=== PATIENT | female | born 1980 | race Caucasian/White ===

== ENCOUNTER 2023-03-15 20:46 | Emergency (ER) | payer BC, SELFPAY ==
[2023-03-15 20:58] VITALS: BP 147/90; PULSE 71; RESP 18; TEMP 36.2; O2SAT 100; BMI 27.5
--- NOTE | 2023-03-15 21:25 | ED_ITS ---
HPI - General Adult General Time Seen by Provider: 21:25 Date Seen: 03/15/23 Chief complaint: Sore Throat Stated complaint: cough, sore throat, headache Time Seen by Provider: 03/15/23 21:11 Source: patient, RN notes reviewed and old records reviewed Mode of arrival: ambulatory Limitations: no limitations History of Present Illness HPI narrative: Satish is a very pleasant 42-year-old female with history of recent viral illness who comes to the emergency room with a new sore throat. Patient states that she has been ill for approximately 3 weeks with the onset of a cold and cough 3 weeks ago. She was seen after a week of symptoms and was given Tessalon Perles. Additional week noted no improvement and continued cough as well as significant sinus pressure and she was started on Augmentin for sinusitis. Today she had the onset of a sore throat which is entirely new for her. Her cough is not worse but is still present. She has a son with a new illness as well. He has tested negative for COVID. She did not receive flu shot this year. No vomiting but she has had loose stools thought to be attributed to the Augmentin. She is not having shortness of breath. No chest pain. Related Data Home Medications Medication Instructions Recorded Confirmed spironolactone 100 mg tablet 100 mg PO QDAY 02/28/23 02/28/23 Previous Rx's Medication Instructions Recorded albuterol sulfate 90 mcg/actuation 2 puff inhalation Q4-6H PRN 02/28/23 aerosol inhaler shortness of breath or wheezing #8.5 grams benzonatate 200 mg capsule 200 mg PO BID-TID PRN cough #20 02/28/23 caps Allergies Allergy/AdvReac Type Severity Reaction Status Date / Time Sulfa (Sulfonamide Allergy Severe Hives Verified 02/28/23 15:17 Antibiotics) Review of Systems Status of ROS: Reports: 10 or more systems reviewed and unremarkable except as noted in History and below Exam Narrative: Exam Narrative: Patient is alert and oriented. She does appear to be uncomfortable when she is coughing. Eyes are clear. Oral cavity shows moist mucous membranes. Posterior oropharynx does not have significant erythema. No trismus but. She has positive left anterior cervical lymphadenopathy. Heart with a regular rate and rhythm and lungs are clear bilaterally. Moving all extremities. Const: Vital Signs, click to edit/add: Vital Signs - 24 hr 03/15/23 20:58 Temperature 97.1 F L Pulse Rate [Pulse Oximeter] 71 Respiratory Rate 18 Blood Pressure [Ri ght Upper Arm] 147/90 H Pulse Oximetry 100 Oxygen Delivery Me thod Room Air Documenting provider has reviewed patient's vital signs: yes Course Course ED Course: At this time differential diagnosis includes pneumonia, strep pharyngitis, influenza, COVID. Patient has no evidence of trismus airway compromise or asymmetrical anatomy at this time. Strep test as well as COVID/influenza/RSV has been ordered. Reevaluation(s) Reevaluation #1: Patient has tested positive for influenza B. X-ray is reassuring. Vital Signs Vital signs: Initial Vital Signs Temperature 97.1 F L 03/15/23 20:58 Temperature Source Temporal Artery Scan 03/15/23 20:58 Pulse Rate 71 03/15/23 20:58 Pulse Rhythm Regular 03/15/23 20:58 Respiratory Rate 18 03/15/23 20:58 Blood Pressure 147/90 H 03/15/23 20:58 Blood Pressure Mean 109 H 03/15/23 20:58 Blood Pressure Position Sitting 03/15/23 20:58 Pulse Oximetry 100 03/15/23 20:58 Oxygen Delivery Method Room Air 03/15/23 20:58 Vital Signs Temperature 97.1 F L 03/15/23 20:58 Pulse Rate 71 03/15/23 20:58 Respiratory Rate 18 03/15/23 20:58 Blood Pressure 147/90 H 03/15/23 20:58 Pulse Oximetry 100 03/15/23 20:58 Oxygen Delivery Method Room Air 03/15/23 20:58 Temperature 97.1 F L 03/15/23 20:58 Pulse Rate 71 03/15/23 20:58 Respiratory Rate 18 03/15/23 20:58 Blood Pressure 147/90 H 03/15/23 20:58 Pulse Oximetry 100 03/15/23 20:58 Oxygen Delivery Method Room Air 03/15/23 20:58 Medical Decision Making MDM Narrative Medical decision making narrative: 1. Influenza B-I believe this to be a new diagnosis with onset of sore throat today. This is on top of her post viral cough and sinusitis from an earlier on identified illness. Given the circumstances in that she is dealing with post viral cough I do offer Tamiflu via our [employer] machine. Normally I do explain that influenza B is mild but I would suggest that she start on this antiviral. Suggest ibuprofen Tylenol as needed for discomfort suggest rest and fluids. Seek medical attention for worsening symptoms 2. Sinusitis-continue Augmentin. 3. Disposition-home at this time. Rest push fluids. I would not be surprised if she starts developing a fever over the next 48 hours. Return for vomiting, dehydration, breathing difficulties and as needed. Medical Records Medical records reviewed: Yes I reviewed the patient's medical records Lab Data Lab results reviewed: Yes I reviewed the patient's lab results Labs: Lab Results 03/15/23 Range/Units 20:50 SARS-CoV-2 (PCR) Negative SARS-CoV-2 (Negative) Influenza Type A (PCR) Negative PCR FLU A (Negative) Influenza Type B (PCR) POSITIVE PCR FLU B A (Negative) RSV (PCR) Negative PCR RSV (Negative) Group A Strep DNA NOT DETECTED (Not Detectd) Imaging Data Chest x-ray: Attestation: I have reviewed the pertinent imaging results. My impression: I do not note any infiltrates Radiologist's impression: Cardiovascular and mediastinum: Heart size and vasculature are normal in caliber and appearance. Lungs and pleural spaces: Lungs are clear. No sign of infiltrate or mass. No sign of pleural effusion. No pneumothorax. Bones and soft tissues: No significant findings. IMPRESSION: Unremarkable chest. Discharge Plan Discharge Clinical Impression: Post-viral cough syndrome, Influenza B Sinusitis Qualifiers: Sinusitis location: other Chronicity: unspecified Qualified Code(s): J32.9 - Chronic sinusitis, unspecified Patient Disposition: Home, Self-Care Condition: Unchanged Additional Instructions: You have tested positive for influenza B. this is usually the milder form of in fluenza but because you are already suffering from another virus, I would suggest we go ahead and treat with the antiviral medication called Tamiflu. You are likely to have a fever from the influenza over the next day or so. You may continue your Augmentin for the treatment is sinusitis. Seek medical attention or return for worsening symptoms Activity Level: No Restrictions Discharge Diet: Regular Prescriptions: No Action spironolactone 100 mg tablet 100 mg PO QDAY albuterol sulfate 90 mcg/actuation HFA aerosol inhaler 2 puff inhalation Q4-6H PRN (Reason: shortness of breath or wheezing) Qty: 8.5 0RF benzonatate 200 mg capsule 200 mg PO BID-TID PRN (Reason: cough) Qty: 20 0RF Follow Up/Referrals: Katerina Hankins CNP, AIRCRAFT PNEUDRAULICS REPAIRER [Primary Care Provider] - Stand Alone Forms: MyHealth Info Instructions
--- NOTE | 2023-03-15 21:35 | CRLHL7_ITS ---
For Patients: As a result of the Century Cures Act, medical imaging exams and procedure reports are released immediately into your electronic medical record. You may view this report before your referring provider. If you have questions, please contact your health care provider. INDICATION: Cough. TECHNIQUE: Chest 1 view. COMPARISON: None. FINDINGS: Cardiovascular and mediastinum: Heart size and vasculature are normal in caliber and appearance. Lungs and pleural spaces: Lungs are clear. No sign of infiltrate or mass. No sign of pleural effusion. No pneumothorax. Bones and soft tissues: No significant findings. IMPRESSION: Unremarkable chest. Dictated by Devyn Bach MD @ 03/15/2023 10:02:54 PM (Electronically Signed)
--- OUTSIDE RECORDS SUMMARY | 2023-03-15 21:35 | XMS_ITS | Clinical Summary ---
Author Name Unknown Organization [email or web address] [place], [place] [address] Care Team Providers Care Spiral Machine Operator Name Role Phone Katerina Hankins NP Primary Care Provider [phone] Allergies Active Allergy Reactions Criticality Noted Date Comments Fentanyl Hypotension 10/23/2020 Sulfa (Sulfonamide Antibiotics) Hives 09/07 Medications Medication Sig Dispensed Refills Start Date End Date Status Clindamycin Phosphate 1 % swab 0 08/23/2019 Active spironolactone (ALDACTONE) 100 mg tablet Take 1 tablet by mouth once daily. 0 08/23/2019 Active sodium fluoride dental 1.1 % gel sodium fluoride 1.1 % dental paste BRUSH WITH PEA SIZED AMOUNT ON TOOTHBRUSH TWICE DAILY MORNING AND NIGHT 0 Active Opzelura 1.5 % crea 0 07/15/2021 Active esomeprazole (NexIUM) 20 mg capsule Take 1 Capsule (20 mg) by mouth once daily. 0 04/15/2022 Active sucralfate (CARAFATE) 1 gram tablet Take 1 g by mouth. 0 01/13/2022 Active albuterol HFA (PRO-AIR; VENTOLIN; PROVENTIL) 90 mcg/actuation inhaler INHALE 2 PUFFS EVERY 4 TO 6 HOURS NEEDED FOR FOR SHORTNESS OF BREATH OR WHEEZING 0 02/28/2023 Active benzonatate (TESSALON) 200 mg capsule TAKE 1 CAPSULE BY MOUTH 2 TO 3 TIMES A DAY NEEDED FOR COUGH 0 02/28/2023 Active amoxicillin-clav ulanate 875-125 mg tablet (AUGMENTIN)Indic ations:Sinusitis , bacterial,Bronch itis Take 1 Tablet by mouth two times daily with meals for 10 days. 20 Tablet 0 03/10/2023 03/20/2023 Active predniSONE (DELTASONE) 20 mg tabletIndication s:Sinusitis, bacterial,Bronch itis Take 2 Tablets (40 mg) by mouth once daily with a meal for 5 days. 10 Tablet 0 03/10/2023 03/15/2023 Active Lotemax 0.5 % ophthalmic ointment PLACE INTO THE LEFT UPPER EYELID THREE TIMES A DAY FOR 3 DAYS 0 09/30/2021 03/10/2023 Discontinued (*Patient states no longer taking) Multivitamins with Fluoride (MULTI-VITAMIN ORAL) Take 1 Tablet by mouth once daily. 0 03/10/2023 Discontinued (*Patient states no longer taking) amLODIPine (NORVASC) 2.5 mg tabletIndication s:Raynaud's disease without gangrene TAKE 1 TABLET BY MOUTH ONCE DAILY. 30 Tablet 0 09/26/2022 03/10/2023 Discontinued (*Patient states no longer taking) fluconazole (Diflucan) 150 mg tabletIndication s:Antibiotic-ind uced yeast infection Take 1 Tablet (150 mg) by mouth one time for 1 dose. May refill and take a second dose if symptoms persist 72 hours after initial dose 1 Tablet 3 03/10/2023 03/10/2023 Active Problems Problem Noted Date Diagnosed Date Tricompartment osteoarthritis of left knee 11/13 Knee effusion, left 11/14/2019 Acute pain of left knee 11/14/2019 Ovarian cyst 05/09/2014 Cervical cancer 03/12/2013 Elevated blood pressure read ing without diagnosis of hypertension 2008 Clubfoot 11/24/2008 ALLERGY UNSPECIFIED 12/25/2004 CONTRACEPTIVE COUNSELING 03/20/2004 WARTS 08/15/2002 MALAISE AND FATIGUE 02/03/2000 SPRAIN/STRAIN, NECK 10/20/1999 SPRAIN/STRAIN, BACK NOS 10/20/1999 DARA III (cervical intraepithelial neoplasia III) Resolved Problems Problem Noted Date Diagnosed Date Resolved Date SORE THROAT 01/26/2005 12/18/2008 ABDOMINAL PAIN UNSPECIFIED SITE 12/14/2004 12/18/2008 UPPER RESPIRATORY INFECTION - ACUTE 02/12/2004 12/18/2008 CONTRACEPTIVE MANAGEMENT NOS 12/08/1999 12/18/2008 PAIN, ABDOMINAL, RIGHT LOWER QUADRANT 10/29/1999 12/18/2008 STATE - INCIDENTAL 12/16/2004 Encounters Date Type Department Care Team Description 03/15/2023 Nurse Triage [facility] [address] [place] [address] Katerina Hankins, CALIN Sinus Problem 03/10/2023 2:20 PM MAKING DEPARTMENT PREPARER Office Visit [facility] [address] [place] [address] Kiera Humphrey MD Cough (Cough x 3 weeks, sinus congestion, fevers ) 03/10/2023 Travel 12/27/2022 3:30 PM MAKING DEPARTMENT PREPARER Ancillary Procedure [facility] [address] [place] [id number] 12/27/2022 Travel 12/21/2022 10:25 AM MAKING DEPARTMENT PREPARER Office Visit [facility] [address] [place] [address] Katerina Hankins NP Neck Pain/problem (Left side neck x 1 week) 12/21/2022 Travel from Last 3 Months Immunizations Name Administration Dates Next Due DTP 05/12/1988,11/22/1984 Influenza Virus, Unspecified 04/02/2016 Influenza, IIV3 (Age >=3 years) 11/14/2018,01/16,12/17/2002 Influenza, IIV4 12/22/2017 Influenza, IIV4 (=>6mos) MDV 01/12/2017 MMR 09/27/1995 Oral Polio Vaccine 05/12/1988,11/22/1984 Td (Age >=7 Years) 09/27/1995 Tdap 06/18/2016,01/16/2013 Family History Medical History Relation Name Comments Cancer-prostate Father Depression Father Diabetes type II Maternal Grandfather Heart Disease Maternal Grandfather Diabetes Maternal Grandmother Lung cancer Maternal Grandmother Smoker Cancer-pancreatic Maternal Uncle HIV Maternal Uncle Heart Disease Mother Peripheral vascular disease Mother Genetic Other 1 [-] migraines. Genetic Other 2 [-] migraines.~hypertension-grandpa rents~irregular heart beat Genetic Other 3 Homocysteinuria ---mutiple fmaily members on mom's side~[-] migraines.~hypertension-grandpa rents~irregular heart beat No Known Problems Paternal Grandfather Diabetes Paternal Grandmother Mental illness Paternal Grandmother Other Paternal Grandmother glaucom a Relation Name Status Comments Father Alive Maternal Grandfather Maternal Grandmother Maternal Uncle Mother Alive Other 1 Other 2 Other 3 Paternal Grandfather Paternal Grandmother Social History Tobacco Use Types Packs/Day Years Used Date Smoking Tobacco: Former Cigarettes 0.5 10.7 0 02/07/1997 - 10/23/2007 Smokeless Tobacco: Never Tobacco Cessation:Counseling Given: Yes Alcohol Use Standard Drinks/Week Comments Yes 0 (1 standard drink = 0.6 oz pur e alcohol) Occasional use PHQ-2 Answer Date Recorded PHQ-2 TOTAL SCORE 0 04/15/2022 Social Connections Answer Date Recorded Frequency of Communication with Friends and Fami ly Not on file 02/07/2021 Financial Resource Strain Answer Date R ecorded Difficulty of Paying Living Expenses Not on file 02/07/2021 Difficulty of Paying Living Expenses Not on file 02/07/2021 Sex and Gender Information Value Date Recorded Sex Assigned at Not on file Gender Identity Not on file Sexual Orientation Not on file Obstetrics History Para Term AB IAB SAB Ectopic Multiple Livin g Live Births 3 3 3 Date Outcome GA Total Labor Labor/2nd/3rd Weight Sex Delivery Anes PTL Bisi A1 A5 Name Cl in Para Para Para Last Filed Vital Signs Vital Sign Reading Time Taken Comments Blood Pressure 120/60 03/10/2023 2:27 PM MAKING DEPARTMENT PREPARER Pulse 90 03/10/2023 2:27 PM MAKING DEPARTMENT PREPARER Temperature 37.5 ??C (99.5 ??F) 03/10/2023 2:27 PM CS T Respiratory Rate 16 09/10/2021 10:16 AM CDT Oxygen Saturation 98% 03/10/2023 2:27 PM MAKING DEPARTMENT PREPARER Inhaled Oxygen Concentration - - Weight 74.9 kg (165 lb 3.2 oz) 03/10/2023 2:27 P M MAKING DEPARTMENT PREPARER Height 163.9 cm (5' 4.53) 04/27/2022 2:48 PM CD T Body Mass Index 27.89 04/27/2022 2:48 PM CDT Plan of Treatment Health Maintenance Due Date Last Done Comments COVID-19 vaccine series (#1) 12/25/1987 Pneumococcal series for age 6-64 (1 of 2 - PCV) 1988 HIV for age 15-65 1997 Hepatitis C screening for ag e 18-79 2000 Pap test for age 21-65 01/09/2020 9 (Completed outside of [facility]), 07/23/2013, 09/06/2012 (Completed outside of [facility]), Additional history exists Influenza for age 9-49 10/08/2022 9, 12/22/2017, 01/12/2017, Additional history exists Depression screening for age 12+ 04/16/2023 04/15/2022, 11/25/2020, 10/02/2020, Additional history exists BMI (ht and wt on same day) for age 18+ 04/28/2023 04/27/2022, 04/15/2022, 11/24/2021, Additional history exists Tetanus booster 06/18/2026 06/18/2016, 01/07, 09/27/1995 Tdap Completed 06/18/2016, 01/16/2013 Procedures Procedure Name Priority Date/Time Associated Diagnosis Comments US NECK OR HEAD SOFT TISSUE QUAN 12/27/2022 4:34 PM MAKING DEPARTMENT PREPARER Lump in neck CBC WITH AUTO DIFFERENTIAL Routine 12/21/2022 11:22 AM MAKING DEPARTMENT PREPARER Lump in neck TSH WITH REFLEX Routine 12/21/2022 11:22 AM MAKING DEPARTMENT PREPARER Lump in neck COMP METABOLIC PANEL Routine 12/21/2022 11:22 AM MAKING DEPARTMENT PREPARER Lump in neck CBC WITH AUTO DIFFERENTIAL Routine 12/21/2022 11:22 AM MAKING DEPARTMENT PREPARER Lump in neck from Last 3 Months Results * US NECK OR HEAD SOFT TISSUE (12/27/2022 4:34 PM MAKING DEPARTMENT PREPARER) Anatomical Region Laterality Modality NECK Ultrasound 12/27/2022 4:34 PM MAKING DEPARTMENT PREPARER Impressions 12/27/2022 4:40 PM MAKING DEPARTMENT PREPARER 1. ??The area palpable abnormality in the left neck correlates with a morphologically normal, subcentimeter cervical chain lymph node. Narrative 12/27/2022 4:40 PM MAKING DEPARTMENT PREPARER For Patients: As a result of the Cures Act, medical imaging exams and procedure reports are released immediately into your electronic medical record. You may view this report before your referring provider. If you have questions, please contact your health care provider. EXAM: US NECK OR HEAD SOFT TISSUE LOCATION: [facility] DATE: 12/27/2022 INDICATION: Lump In Neck COMPARISON: None. TECHNIQUE: Routine. FINDINGS: The area palpable abnormality in the left neck correlates with a 0.5 x 2.6 x 1.1 cm lymph node which retains a hypoechoic cortex and central fatty hilum. A similarly appearing, morphologically normal lymph node in the upper right neck is also seen measuring 0.5 x 1 x 1.2 cm. No enlarged cervical lymph nodes by size criteria are identified. No solid mass or fluid collection identified. Procedure Note Ger Richter MD - 12/27/2022 For Patients: As a result of the Cures Act, medical imagingexams and procedure reports are released immediately into your electronicmedical record. You may view this report before your referring provider.If you have questions, please contact your health care provider. EXAM: US NECK OR HEAD SOFT TISSUE LOCATION: [facility] DATE: 12/27/2022 INDICATION: Lump In Neck COMPARISON: None. TECHNIQUE: Routine. FINDINGS: The area palpable abnormality in the left neck correlates with a0.5 x 2.6 x 1.1 cm lymph node which retains a hypoechoic cortex andcentral fatty hilum. A similarly appearing, morphologically normal lymphnode in the upper right neck is also seen measuring 0.5 x 1 x 1.2 cm. Noenlarged cervical lymph nodes by size criteria are identified. No solid mass or fluid collection identified. IMPRESSION: 1. The area palpable abnormality in the left neck correlates with amorphologically normal, subcentimeter cervical chain lymph node. Katerina Hankins WAREHOUSE TRAINER US * CBC WITH AUTO DIFFERENTIAL (12/21/2022 11:22 AM MAKING DEPARTMENT PREPARER) WHITE BLOOD COUNT 5.3 4.5 - 11.0 thou/cu mm 12/21/2022 11:25 AM [facility] RED BLOOD COUNT 4.12 4.00 - 5.20 mil/cu mm 12/21/2022 11:25 AM [facility] HEMOGLOBIN 13.0 12.0 - 16.0 g/dL 12/21/2022 11:25 AM [facility] HEMATOCRIT 38.6 33.0 - 51.0 % 12/21/2022 11:25 AM [facility] MCV 94 80 - 100 fL 12/21/2022 11:25 AM [facility] MCH 31.6 26.0 - 34.0 pg 12/21/2022 11:25 AM [facility] MCHC 33.7 32.0 - 36.0 g/dL 12/21/2022 11:25 AM [facility] RDW 12.3 11.5 - 15.5 % 12/21/2022 11:25 AM [facility] PLATELET COUNT 236 140 - 440 thou/cu mm 12/21/2022 11:25 AM [facility] MPV 9.9 6.5 - 11.0 fL 12/21/2022 11:25 AM [facility] % NEUT 51.7 % 12/21/2022 11:25 AM [facility] % LYMPH 35.8 % 12/21/2022 11:25 AM [facility] % MONO 10.4 % 12/21/2022 11:25 AM [facility] % EOS 1.9 % 12/21/2022 11:25 AM [facility] % BASO 0.2 % 12/21/2022 11:25 AM [facility] ABSOLUTE NEUTROPHILS 2.7 1.7 - 7.0 thou/cu mm 12/21/2022 11:25 AM [facility] ABSOLUTE LYMPHOCYTES 1.9 0.9 - 2.9 thou/cu mm 12/21/2022 11:25 AM [facility] ABSOLUTE MONOCYTES 0.6 <0.9 thou/cu mm 12/21/2022 11:25 AM [facility] ABSOLUTE EOSINOPHILS 0.1 <0.5 thou/cu mm 12/21/2022 11:25 AM MAKING DEPARTMENT PREPARER [facility] ABSOLUTE BASOPHILS 0.0 <0.3 thou/cu mm 12/21/2022 11:25 AM MAKING DEPARTMENT PREPARER [facility] Blood BLOOD SPECIMEN / Unknown Butterfly / Unknown 12/21/2022 11:22 AM MAKING DEPARTMENT PREPARER 12/21/2022 11:22 AM MAKING DEPARTMENT PREPARER Katerina Hankins NP HEMATOLOGY [facility] [address] [place] [address], * TSH WITH REFLEX (12/21/2022 11:22 AM MAKING DEPARTMENT PREPARER) TSH 1.37 0.27 - 4.20 uIU/mL 12/21/2022 4:48 PM MAKING DEPARTMENT PREPARER [facility] Blood BLOOD SPECIMEN / Unknown Butterfly / Unknown 12/21/2022 11:22 AM MAKING DEPARTMENT PREPARER 12/21/2022 11:22 AM MAKING DEPARTMENT PREPARER Narrative [facility] - 12/21/2022 4:48 PM MAKING DEPARTMENT PREPARER In Adults, TSH values between 5.00 and 10.00 uIU/ml do not necessarily indicate the presence of Hypothyroidism. Correlation with clinical findings such as presence of goiter and/or Thyroperoxidase (TPO) Antibody may be helpful. For more information please refer to EBEN 2004; 291: 228-238. Katerina Hankins NP CHEMISTRY [facility] [address] [place] [address], * COMP METABOLIC PANEL (12/21/2022 11:22 AM MAKING DEPARTMENT PREPARER) SODIUM 138 136 - 145 mmol/L 12/21/2022 4:48 PM MAKING DEPARTMENT PREPARER [facility] POTASSIUM 4.7 3.5 - 5.1 mmol/L 12/21/2022 4:48 PM MAKING DEPARTMENT PREPARER [facility] CHLORIDE 102 98 - 107 mmol/L 12/21/2022 4:48 PM MAKING DEPARTMENT PREPARER [facility] CO2,TOTAL 23 22 - 29 mmol/L 12/21/2022 4:48 PM MAKING DEPARTMENT PREPARER [facility] ANION GAP 13 5 - 18 12/21/2022 4:48 PM [facility] GLUCOSE 89 70 - 99 mg/dL 12/21/2022 4:48 PM [facility] CALCIUM 9.9 8.6 - 10.0 mg/dL 12/21/2022 4:48 PM [facility] BUN 10 6 - 20 mg/dL 12/21/2022 4:48 PM [facility] CREATININE 0.76 0.50 - 0.90 mg/dL 12/21/2022 4:48 PM [facility] BUN/CREAT RATIO 13 10 - 20 4:48 PM [facility] eGFR >90 >90 mL/min/1.7 3m2 12/21/2022 4:48 PM [facility] Comment:As of 2021, eG FR is calculated by the CKD-EPI creatinine equation without race adjustment. ??eGFR can be influenced by muscle mass, exercise, and diet. ??The reported eGFR is an estimation only and is only applicable if the renal function is stable. ALBUMIN 4.7 4.0 - 4.9 g/dL 12/21/2022 4:48 PM [facility] PROTEIN,TOTAL 7.5 6.0 - 8.0 g/dL 12/21/2022 4:48 PM [facility] BILIRUBIN,TOTAL 0.4 0.0 - 1.2 mg/dL 12/21/2022 4:48 PM [facility] ALK PHOSPHATASE 71 35 - 104 IU/L 12/21/2022 4:48 PM [facility] ALT (SGPT) 12 10 - 35 IU/L 12/21/2022 4:48 PM [facility] AST (SGOT) 23 10 - 35 IU/L 12/21/2022 4:48 PM MAKING DEPARTMENT PREPARER [facility] Blood BLOOD SPECIMEN / Unknown Butterfly / Unknown 12/21/2022 11:22 AM MAKING DEPARTMENT PREPARER 12/21/2022 11:22 AM MAKING DEPARTMENT PREPARER Katerina Hankins WAREHOUSE TRAINER CHEMISTRY [facility] [address] [place] [address], from Last 3 Months Advance Directives Latest Code Status on File Code Status Date Activated Date Inactivated Comments Full Code 03/14/2013 5:39 AM 03/14/2013 12:17 PM Code Status History Code Status Date Activated Date Inactivated Comments Full Code 03/13/2013 3:35 PM 03/13/2013 3:35 PM Care Teams Spiral Machine Operator Relationship Specialty Start [place] [address] [place] [address] PCP - General Nurse Practitioner 02/21/19
--- OUTSIDE RECORDS SUMMARY | 2023-03-15 21:35 | XMS_ITS | Encounter Summary ---
Author Name Unknown Organization [facility] Address [address] [place] [address] Care Team Providers Care Flood Control Engineer Name Role Phone No Ref-Primary, Physician Primary Care Provider Katerina Ratliff MD Unavailable [phone] Katerina Ratliff MD Unavailable [phone] Sawyer Ann MD Unavailable Reason for Visit * Reason Onset Date Comments Refill Request 10/04/2022 Encounter Details Date Type Department Care Team (Late st Contact Info) Description 10/04/2022 Refill [facility] [place] [address] [facility] [address] [place] [address] Katerina Ratliff MD [address] [place], [place] [phone] Refill Request Social History Tobacco Use Types Packs/Day Years Used Date Smoking Tobacco: Former Cigarettes 0 Smokeless Tobacco: Never Alcohol Use Standard Drinks/Week Comments No 0 (1 standard drink = 0.6 oz pur e alcohol) [place] Depression Scale Answer Date Recorded [place] Depression Score 6 12/10/2018 Last EPDS Self Harm Result Not on file 12/10 Sex and Gender Information Value Date Recorded Sex Assigned at Not on file Gender Identity Not on file Sexual Orientation Not on file documented as of this encounter Plan of Treatment Upcoming Encounters Date Type Department Care Team (Late st Contact Info) Description 04/05/2023 10:00 AM RN NIGHT Office Visit [facility] [address] 4th [place] [phone] Katerina Ratliff MD [address] [place] [address] Sawyer Ann MD [address] [place] [address] documented as of this encounter Visit Diagnoses Not on filedocumented in this encounter Care Teams Flood Control Engineer Relationship Specialty Start Date End Date No Ref-Primary, Physician PCP - General 05/03/18 Katerina Ratliff MD [address] [place] [address] Assigned Surgical Provider 10/24/21 Katerina Ratliff MD [address] [place] [address] Surgeon Surgery 01/05/23 Sawyer Ann MD [address] [place] [address] Gastroenterology 01/05/23 documented as of this encounter
--- OUTSIDE RECORDS SUMMARY | 2023-03-15 21:35 | XMS_ITS | Clinical Summary ---
Author Name Unknown Organization [facility] Address [address] [place] [address] Care Team Providers Care Dev Technical Mgr Name Role Phone No Ref-Primary, Physician Primary Care Provider Katerina Ratliff MD Unavailable Katerina Ratliff MD Unavailable [phone] Sawyer Ann MD Unavailable Allergies Active Allergy Reactions Criticality Noted Date Comments Fentanyl 10/23/2020 Drop in blood pressure Sulfa Antibiotics Hives 09/17/2005 Medications Medication Sig Dispensed Refills Start Date End Date Status spironolactone (ALDACTONE) 100 MG tablet 100 mg daily 0 08/30/2021 Active spironolactone (ALDACTONE) 25 MG tablet 25 mg daily 0 09/24/2021 Active tretinoin (RETIN-A) 0.025 % external cream tretinoin 0.025 % topical cream APPLY PEA SIZED AMOUNT TO FACE EVERY NIGHT TOLERATED, FOLLOW WITH MOISTURIZER 0 Active clindamycin (CLEOCIN T) 1 % SWAB WIPE ACNE-PRONE SKIN ONCE DAILY IN THE MORNING 0 08/30/2021 Active Multiple Vitamins-Calcium (MULTI-DAY/CALCIUM/ EXTRA IRON PO) Take 1 tablet by mouth daily 0 Active sucralfate (CARAFATE) 1 GM tabletIndications:H eartburn Take 1 tablet (1 g) by mouth 4 times daily 45 tablet 1 01/13/2022 Active loratadine-pseudoeP HEDrine (CLARITIN-D 12-HOUR) 5-120 MG 12 hr tabletIndications:S easonal Allergic Rhinitis Take 1 tablet by mouth daily 0 Active Active Problems Problem Noted Date Diagnosed Date Delivery of by section 2018 Post-operative state 08/14/2016 Indication for care in labor or delivery 017 Family History Medical History Relation Comments Colon Cancer No family hx of Social History Tobacco Use Types Packs/Day Years Used Date Smoking Tobacco: Former Cigarettes 0 Smokeless Tobacco: Never Tobacco Cessation:Counseling Given: Not Answered Alcohol Use Standard Drinks/Week Comments No 0 (1 standard drink = 0.6 oz pur e alcohol) Ashley Depression Scale Answer Date Recorded Ashley Depression Score 6 12/10/2018 Last EPDS Self Harm Result Not on file 12/10 Adolescent Education Answer Date Record ed Getting School Help Needed Not on file 10/29 Sex and Gender Information Value Date Recorded Sex Assigned at Not on file Gender Identity Not on file Sexual Orientation Not on file Last Filed Vital Signs Vital Sign Reading Time Taken Comments Blood Pressure 114/75 02/22/2022 1:40 PM ACCESS SERVICES LIBRARIAN Pulse 68 02/22/2022 1:40 PM ACCESS SERVICES LIBRARIAN Temperature 36.7 ??C (98.1 ??F) 11/26/2021 4:36 PM CD T Respiratory Rate 16 02/22/2022 1:40 PM ACCESS SERVICES LIBRARIAN Oxygen Saturation 97% 02/22/2022 1:40 PM ACCESS SERVICES LIBRARIAN Inhaled Oxygen Concentration - - Weight 80.3 kg (177 lb 1.6 oz) 11/26/2021 9:36 A M CDT Height 165.1 cm (5' 5) 10/05/2021 1:54 PM CDT Body Mass Index 29.47 10/05/2021 1:54 PM CDT Plan of Treatment Upcoming Encounters Date Type Department Care Team (Late st Contact Info) Description 04/05/2023 10:00 AM ACCESS SERVICES LIBRARIAN Office Visit [facility] [address] [place] [address] Katerina Ratliff MD [address] [place], [place] [phone] Sawyer Ann MD [address] [place] [address] Health Maintenance Due Date Last Done Comments ADVANCE CARE PLANNING 1982 ANNUAL REVIEW OF HM ORDERS 1982 HEPATITIS B IMMUNIZATION (1 of 3 - 3-dose series) 1982 YEARLY PREVENTIVE VISIT 1982 COVID-19 Vaccine (#1) 06/24/1983 IPV IMMUNIZATION (3 of 3 - 4-dose series) 11/11/1988 05/12/1988, 11/22/1984 HEPATITIS C SCREENING 2000 INFLUENZA VACCINE (#1) 2022 9, 12/22/2017, 01/12/2017, Additional history exists PHQ-2 (once per calendar year) 2023 DTAP/TDAP/TD IMMUNIZATION (6 - Td or Tdap) 06/18/2026 06/18/2016, 01/16/2013, 09/27/1995, Additional history exists HPV TEST 11/10/2027 11/09/2022, 04/2022, 10/22/2021, Additional history exists PAP 11/10/2027 11/09/2022, 10/22/2021 HIV SCREENING Completed 06/05/2018, 01/20/2016 HPV IMMUNIZATION Aged Out No longer e ligible based on patient's age to complete this topic MENINGITIS IMMUNIZATION Aged Out No l onger eligible based on patient's age to complete this topic Pneumococcal Vaccine: Pediatrics (0 to 5 Years) and At-Risk Patients (6 to 64 Years) Aged Out No longer eligible based on patient's age to complete this topic RSV MONOCLONAL ANTIBODY Aged Out No l onger eligible based on patient's age to complete this topic Care Teams Dev Technical Mgr Relationship Specialty Start Date End Date No Ref-Primary, Physician PCP - General 05/03/18 Katerina Ratliff MD [address] [place] [address] Assigned Surgical Provider 10/24/21 Katerina Ratliff MD [address] [place] [address] Surgeon Surgery 01/05/23 Sawyer Ann MD [address] [place] [address] Gastroenterology 01/05/23
--- OUTSIDE RECORDS SUMMARY | 2023-03-15 21:35 | XMS_ITS | Referral Summary ---
Author Name Unknown Organization [facility] Address [address] [place] [address] Care Team Providers Care Clinical Trial Specialist Name Role Phone No Ref-Primary, Physician Primary Care Provider Katerina Ratliff MD Unavailable Katerina Ratliff MD Unavailable [phone] Sawyer Ann MD Unavailable Allergies Active [...] for care in labor or delivery 017 Social History Tobacco Use Types Packs/Day Years Used Date Smoking Tobacco: Former Cigarettes 0 Smokeless Tobacco: Never Tobacco Cessation:Counseling Given: Not Answered Alcohol Use Standard Drinks/Week Comments No 0 (1 standard drink = 0.6 oz pur e alcohol) [place] Depression Scale Answer Date Recorded [place] Depression Score 6 12/10/2018 Last EPDS Self [...] Comments Blood Pressure 114/75 02/22/2022 1:40 PM STAFF NUCLEAR MEDICINE TECHNOLOGIST Pulse 68 02/22/2022 1:40 PM STAFF NUCLEAR MEDICINE TECHNOLOGIST Temperature 36.7 ??C (98.1 ??F) 11/26/2021 4:36 PM CD T Respiratory Rate 16 02/22/2022 1:40 PM STAFF NUCLEAR MEDICINE TECHNOLOGIST Oxygen Saturation 97% 02/22/2022 1:40 PM STAFF NUCLEAR MEDICINE TECHNOLOGIST Inhaled Oxygen Concentration - - Weight 80.3 kg (177 lb 1.6 oz) 11/26/2021 9:36 A M CDT Height 165.1 cm (5' 5) 10/05/2021 1:54 PM CDT Body Mass Index 29.47 10/05/2021 1:54 PM CDT Plan of Treatment Upcoming Encounters Date Type Department Care Team (Late st Contact Info) Description 04/05/2023 10:00 AM STAFF NUCLEAR MEDICINE TECHNOLOGIST Office Visit [facility] [address] 4th [place] [address] Katerina Ratliff MD [address] [place] [address] Sawyer Ann MD [address] [place] [id number] Care Teams Clinical Trial Specialist Relationship Specialty Start Date End Date No Ref-Primary, Physician PCP - General 05/03/18 Katerina Ratliff MD [address] [place] [address] Assigned Surgical Provider 10/24/21 Katerina Ratliff MD [address] [place] [address] Surgeon Surgery 01/05/23 Saweyr Ann MD [address] [place] [address] Gastroenterology 01/05/23
--- OUTSIDE RECORDS SUMMARY | 2023-03-15 21:35 | XMS_ITS | Encounter Summary ---
Author Name Unknown Organization [facility] Address [address] [place] [address] Care Team Providers Care Furniture Refinisher Name Role Phone No Ref-Primary, Physician Primary Care Provider Katerina Ratliff MD Unavailable Katerina Ratliff MD Unavailable [phone] Sawyer Ann MD Unavailable Encounter Details Date Type Department Care Team (Late Contact Info) Description 10/04/2022 [facility] [address] [facility] [address] [place] [address] Katerina Ratliff MD [address] [place] [address] Social History Tobacco Use Types Packs/Day Years Used Date Smoking Tobacco: Former Cigarettes 0 Smokeless Tobacco: Never Alcohol Use Standard Drinks/Week Comments No 0 (1 standard drink = 0.6 oz pur e alcohol) [place] Depression Scale Answer Date Recorded [place] Depression Score 6 12/10/2018 Last EPDS Self Harm Result Not on file 12/10 Sex and Gender Information Value Date Recorded Sex Assigned at Not on file Gender Identity Not on file Sexual Orientation Not on file documented as of this encounter Plan of Treatment Upcoming Encounters Date Type Department Care Team (Late st Contact Info) Description 04/05/2023 10:00 AM SIGNAL TOWER OPERATOR Office Visit [facility] [address] 4th [place] [phone] Katerina Ratliff MD [address] [place] [address] Sawyer Ann MD [address] [place] [address] documented as of this encounter Visit Diagnoses Not on filedocumented in this encounter Care Teams Furniture Refinisher Relationship Specialty Start Date End Date No Ref-Primary, Physician PCP - General 05/03/18 Katerina Ratliff MD [address] [place] [address] Assigned Surgical Provider 10/24/21 Katerina Ratliff MD [address] [place] [address] Surgeon Surgery 01/05/23 Sawyer Ann MD [address] [place] [address] Gastroenterology 01/05/23 documented as of this encounter
--- OUTSIDE RECORDS SUMMARY | 2023-03-15 21:35 | XMS_ITS | Encounter Summary ---
Author Name Unknown Organization [facility] Address [address] [place] [address] Care Team Providers Care Facepiece Line Supervisor Name Role Phone No Ref-Primary, Physician Primary Care Provider Katerina Ratliff MD Unavailable [phone] Reason for Referral * Consultation (Routine: Next available opening) - Canceled Specialty Diagnoses / Procedures Referred By Yudelka garza Referred To Contact Gastroenterology Diagnoses Heartburn Sawyer Watts MD [address] [address] Referral ID Status Reason Start Date Expiration Date V isits Requested Visits Authorized [id number] Canceled 10/21/2022 10/21/2023 1 1 Question Answer Reason for Referral: General GI Scheduling Instructions: [facility] will call you to coordinate your care as prescribed by the provider. If you don? t hear from a advertising account representative within 2 business days, please call . Comments Please be aware that coverage of these services is subject to the terms and limitations of your health insurance plan. Call member services at your health plan with any benefit or coverage questions. [facility] will call you to coordinate your care as prescribed by the provider. If you don? t hear from a advertising account representative within 2 business days, please call . * Consultation (Routine: Next available opening) - Pending Review Specialty Diagnoses / Procedures Referred By Yudelka t Referred To Contact Gastroenterology Diagnoses Heartburn Katerina Ratliff MD [address] [place] [address] Referral ID Status Reason Start Date Expiration Date V isits Requested Visits Authorized [id number] Pending Review 10/20/2022 10/20/2023 1 1 Question Answer Reason for Referral: General GI Scheduling Instructions: [facility] will call you to coordinate your care as prescribed by the provider. If you don? t hear from a advertising account representative within 2 business days, please call . Additional Information: heartburn, hx Schatzki's ring, ongoing RUQ pain after eating s/p lap luis felipe Comments Please be aware that coverage of these services is subject to the terms and limitations of your health insurance plan. Call member services at your health plan with any benefit or coverage questions. [facility] will call you to coordinate your care as prescribed by the provider. If you don? t hear from a advertising account representative within 2 business days, please call . Reason for Visit * Reason Onset Date Comments Post-Op - General Surgery 10/19/2022 Medica tion refill Encounter Details Date Type Department Care Team (Late st Contact Info) Description 10/19/[address] [facility] [place] [address] [place] [address] Katerina Ratliff MD [address] [place], [place] [phone] Post-Op - General Surgery (Medication refill) Social History Tobacco Use Types Packs/Day Years Used Date Smoking Tobacco: Former Cigarettes 0 Smokeless Tobacco: Never Alcohol Use Standard Drinks/Week Comments No 0 (1 standard drink = 0.6 oz pur e alcohol) [place] Depression Scale Answer Date Recorded [place] Depression Score 6 12/10/2018 Last EPDS Self Harm Result Not on file 12/10 Sex and Gender Information Value Date Recorded Sex Assigned at Not on file Gender Identity Not on file Sexual Orientation Not on file documented as of this encounter Miscellaneous Notes * Telephone Encounter - Ruma Molina RN - 10/20/2022 3:[address] Ratliff: I signed the refill and placed GI order, I think that at this point she should meet with gastro if still having issues. If she can't get in with the [facility] in a reasonable time can you provide her with the number for [facility], they can often see patients sooner. [facility] I called patient with the above info. She is aware that refill was sent to [facility] in [place]. She will call our office if she does not get a call to set up appointment with [facility] in the next couple of days. * Telephone Encounter - Ruma Molina RN - 10/20/2022 3:02 PM CDT S/p EGD Procedure date: 02/22/22 Surgeon: Dr. Ratliff Patient is calling for refill of Nexium( esomeprazole) 40mg. Would like this to go to [facility] pharmacy in [place]. She tells me that she continues to have intermittent symptoms of RUQ pain if she is not careful with her diet and eating later in the evening. Wondering if she should be seen by GI? If so, would Dr. Ratliff place the referral for her. Routing to Dr. Ratliff for approval of refill and her input on possible referral to GI. * Telephone Encounter - Ruma Molina RN - 10/20/2022 10:12 AM CDT Pt returned RN call. She can be reached at [phone] Attempted to return patient's call - no answer. I left patient a VM message for patient to return my call. * Telephone Encounter - Marion Schillingissa - 10/19/2022 3:45 PM CDT Name of caller: Patient Reason for Call: Pt would like Esomeprazole refilled Surgeon: Dr. Ratliff Recent Surgery: No If yes, when & what type: See chart, surgery in March 01 and November Best phone number to reach pt at is: [phone] Ok to leave a message with medical info? Yes. Pharmacy preferred (if calling for a refill): [facility] documented in this encounter Plan of Treatment Upcoming Encounters Date Type Department Care Team (Late st Contact Info) Description 04/05/2023 10:00 AM GREEN BUILDING MATERIALS DISTRIBUTOR Office Visit [facility] [address] [place] [phone] Katerina Ratliff MD [address] [place] [address] Sawyer Ann MD [address] [place] [phone] Scheduled Referrals Name Type Priority Associated Diagnoses Orde r Schedule Adult GI Lighting Engineering Technician Referral - Consult Only Referral Routine: Next available opening Heartburn Expected: 10/20/2022 (Approximate), Expires: 10/21/2023 Adult GI Lighting Engineering Technician Referral - Consult Only Referral Routine: Next available opening Heartburn Expected: 12/21/2022 (Approximate), Expires: 10/21/2023 documented as of this encounter Visit Diagnoses Diagnosis Heartburn documented in this encounter Care Teams Facepiece Line Supervisor Relationship Specialty Start Date End Date No Ref-Primary, Physician PCP - General 05/03/18 Katerina Ratliff MD [address] [place], [place] [phone] Assigned Surgical Provider 10/24/21 documented as of this encounter
[2023-03-15 21:36] LABS: Strep A DNA Probe* NOT DETECTED (Not Detectd)
--- OUTSIDE RECORDS SUMMARY | 2023-03-15 21:36 | XMS_ITS | Data Portability ---
Author Name Unknown Address [address] [place] [address] Phone [phone] [facility] FOCUSING MACHINE OPERATOR, [id number] Address [address] [place] [phone] Assessment Encounter Date Assessment Date Assessment LastModified by Organization Details LastModified Time 04/15/2021 04/15/2021 I spent a total of 20 minutes providing care for this patient including: preparing to see the patient, obtaining a medical history, completing a medically appropriate physical exam, completing documentation of visit information and plans in the EMR, counseling the patient and/or caregiver regarding her diagnosis, treatment options and follow up plans, as well as any necessary communication of subsequent test results to the patient Not available 04/15/2021 15:11:23 05/20/2021 05/20/2021 I spent a total of 21 minutes providing care for this patient including: preparing to see the patient, obtaining a medical history, completing a medically appropriate physical exam, completing documentation of visit information and plans in the EMR, counseling the patient and/or caregiver regarding her diagnosis, treatment options and follow up plans, as well as any necessary communication of subsequent test results to the patient Not available 05/20/2021 12:26:37 11/09/2022 11/09/2022 - Encouraged breast self-awareness and recommend yearly mammogram. - Encouraged regular exercise. - Calcium and vitamin D intake discussed. - Patient will return to clinic for fasting labs. - Discussed appropriate breast cancer screening and mammogram intervals. - Pap smear obtained, will inform patient of results - RTC in 1 year/jenna greenfield Not available 11/10/2022 18:03:11 Plan of Treatment Reminders Order Date Submit Date Provider Last Modified By Organization Details Last Modified Time Details Appointments None recorded. Lab Pap test, slide(s), cervical 2022 023 [facility], [address] [facility], [address], [place], [address], 3 07:26:24 CT + NG DNA, PCR, unspecified specimen 2022 023 [facility], [address] [facility], [address], [place], [address], 3 07:26:06 Pap test, slide(s), cervical 2021 022 [facility], [address] [facility], [address], [place], [address], 3 03:42:33 bacterial vaginosis + vaginitis panel, vaginal 2021 022 [email or web address] [id number] [facility] , [address] [place] [address], [address], [address], 3 18:54:55 wet mount panel, vaginal fluid 2021 022 [id number] [facility] , [address] [place] [address], [address], [place], [address], 2 12:51:33 culture, vaginal 2021 022 [facility], [address], [place], [address], 2 09:11:38 bacterial vaginosis + vaginitis panel, vaginal 2021 022 EWING [id number]_[email or web address] [facility] , [address] [facility], [address], [place], [address], 2 14:40:04 hemoglobin (Hb), fingerstick , blood 2020 021 [email or web address] [email or web address] _doole , [address], [address], [place], [address], 12:05:51 pap, LB 2020 021 [facility], [address], [place], [address], 09:30:57 HPV DNA, high-risk 2020 021 [facility], [address], [place], [address], 09:30:57 Referral None recorded. Procedures None recorded. Surgeries None recorded. Imaging None recorded. Medication Orders estradiol 0.01% (0.1 mg/gram) vaginal cream 2022 023 [facility], [address] [place], [address], 3 17:47:34 fluconazole 150 mg tablet [address] [facility], [address] [place], [address], 2 12:51:33 fluconazole 150 mg tablet [address] [facility], [address] [place], [address], 2 12:51:33 lidocaine 5 % topical ointment 2021 022 [facility], [address] [place], [address], 12:16:52 Patient TargetsNo targets recorded. Patient Instructions Encounter Date Encounter Id Patient Instructions Last Modified By Organization Details Last Modified Time 10/22/2021 [id number] - Encouraged breast self-awareness and monthly breast exams. - Reviewed current cervical cancer screening guidelines. Yearly paps due to history of cervical cancer - Discussed appropriate breast cancer screening and mammogram intervals. Start annual mammograms at age 40 - Return to clinic in 1 year for annual exam [email or web address] Not available 10/23/2021 09:38:53 05/20/[id number] - Vaginal hygien e discussed. - Encouraged wearing loose fitting, cotton underwear and avoid douching. No underwear at night. - Only use water to clean vaginally and if you use soap, try an unscented white bar soap like Dove. - Using condoms with intercourse can help decrease the likeliness of vaginal infections as well. Not available 05/20/2021 12:25:29 04/15/2021 [id number] - Vaginal hygien e discussed. - Encouraged wearing loose fitting, cotton underwear and avoid douching. No underwear at night. - Only use water to clean vaginally and if you use soap, try an unscented white bar soap like Dove. - Using condoms with intercourse can help decrease the likeliness of vaginal infections as well. - If no infection present, consider use of RepHresh OTC Not available 04/15/2021 15:12:52 10/06/2020 [id number] - Encouraged breast self-awareness and monthly breast exams. - Reviewed current cervical cancer screening guidelines - Discussed appropriate breast cancer screening and mammogram intervals. - Counseling on heavy menses provided. Recommend daily vit with iron - Counseling on IUDs provided - Encouraged weight loss - Non-gynecologic health concerns managed by primary care provider. - Covid vaccine discussed and encouraged - Return to clinic in 1 year for annual exam [email or web address] Not available 10/06/2020 13:13:50 Reason for Referral None Reported. Results Created Date Observation Date Name Description Value Unit Range Abnormal Flag LastModifiedBy Organization Detail LastModifiedTime 10/06/2020 hemog lobin (Hb), finge rstic k, blood fingerstick hemoglobin 13.3 g/dL 12.0-1 5.0 Not Available [id number] [facility] [address] [facility] [address], [place], [address], 10/06/2020 11:36:22 10/07/19 21 10/06/2020 HPV HIGH RISK DNA WITH 16/18 GENOT YPING HPV high risk type 16 negati ve for HPV type 16. negati ve for HPV type 16. Not Available [facility] [address] [place], [address], 10/28/2020 09:30:57 10/07/19 21 10/06/2020 HPV HIGH RISK DNA WITH 16/18 GENOT YPING HPV high risk type 18 negati ve for HPV type 18. negati ve for HPV type 18. Not Available [facility] [address] [place], [address], 10/28/2020 09:30:57 10/07/19 21 10/06/2020 HPV HIGH RISK DNA WITH 16/18 GENOT YPING HPV other high risk types negati ve for other high risk HPV types. negati ve for other high risk HPV types. Not Available [facility] [address], [place], [address], 10/28/2020 09:30:57 10/07/19 21 10/06/2020 PAP TEST (MAGNETIC RESONANCE IMAGING DIRECTOR CYTOL OGY) case report see note Not Available [facility] [address] [place], [address], 10/28/2020 09:30:57 04/16/19 22 04/15/2021 bacte rial vagin osis + vagin itis panel , vagin al gardnerella negati ve negati ve Not Available [email or web address] [facility] [address] [facility] [address], [place], [address], 04/15/2021 12:16:11 04/16/19 22 04/15/2021 bacte rial vagin osis + vagin itis panel , vagin al trichomonas negati ve negati ve Not Available [address] [address], [place], [address], 04/15/2021 12:16:11 04/16/19 22 04/15/2021 bacte rial vagin osis + vagin itis panel , vagin al derek positi ve negati ve Not Available [address] [address], [place], [address], 04/15/2021 12:16:11 05/21/19 22 05/22/2021 BV+YE AST CULTU RE bv, sialidase activity tnp Not Available [facility] ([facility]) [address] [place], [address], 05/23/2021 09:11:38 05/21/19 22 05/23/2021 BV+YE AST CULTU RE vaginal yeast culture positi ve negati ve abnormal Not Available [facility] ([facility]) [address] [place], [address], 05/23/2021 09:11:38 05/21/19 22 05/22/[address] PROBL EM request problem tnp Not Available [facility] ([facility]) [address] [place], [address], 05/23/2021 09:11:38 05/21/19 22 05/20/2021 bacte rial vagin osis + vagin itis panel , vagin al gardnerella neg negati ve Not Available [address], [place], [address], 05/20/2021 12:00:40 05/21/19 22 05/20/2021 bacte rial vagin osis + vagin itis panel , vagin al trichomonas neg negati ve Not Available [address], [place], [address], 05/20/2021 12:00:40 05/21/19 22 05/20/2021 bacte rial vagin osis + vagin itis panel , vagin al derek neg negati ve Not Available [address], [place], [address], 05/20/2021 12:00:40 05/21/19 22 05/20/2021 wet mount panel , vagin al fluid Unknown Analyte < or = 4.5 Not Available [address], [place], [address], 05/20/2021 12:00:49 05/21/19 22 05/20/2021 wet mount panel , vagin al fluid Unknown Analyte <20% Not Available [address], [place], [address], 05/20/2021 12:00:49 05/21/19 22 05/20/2021 wet mount panel , vagin al fluid Unknown Analyte negati ve Not Available [address], [place], [address], 05/20/2021 12:00:49 05/21/19 22 05/20/2021 wet mount panel , vagin al fluid Unknown Analyte negati ve Not Available [address], [place], [address], 05/20/2021 12:00:49 05/21/19 22 05/20/2021 wet mount panel , vagin al fluid Unknown Analyte positi ve Not Available [address], [place], [address], 05/20/2021 12:00:49 05/21/19 22 05/20/2021 wet mount panel , vagin al fluid Unknown Analyte positi ve Not Available [address], [place], [address], 05/20/2021 12:00:49 05/21/19 22 05/20/2021 wet mount panel , vagin al fluid Unknown Analyte Rare Not Available [address], [place], [address], 05/20/2021 12:00:49 05/21/19 22 05/20/2021 wet mount panel , vagin al fluid Unknown Analyte Rods Not Available [address], [place], [address], 05/20/2021 12:00:49 05/21/19 22 05/20/2021 wet mount panel , vagin al fluid Unknown Analyte Negati ve Not Available [address], [place], [address], 05/20/2021 12:00:49 05/21/19 22 05/20/2021 wet mount panel , vagin al fluid Unknown Analyte Negati ve Not Available [address], [place], [address], 05/20/2021 12:00:49 10/23/19 22 10/22/2021 GYNEC OLOGI C CYTOL OGY (PAP SMEAR ) gynecologic cytology see result s below Not Available [address], [place], [address], 10/27/2021 14:37:12 10/23/19 22 10/22/2021 HPV HIGH RISK TYPES DNA CERVI MAGGY other HR HPV negati ve negati ve Not Available [address], [place], [address], 10/27/2021 14:37:13 10/23/19 22 10/22/2021 HPV HIGH RISK TYPES DNA CERVI MAGGY HPV16 DNA negati ve negati ve Not Available [address], [place], [address], 10/27/2021 14:37:13 10/23/19 22 10/22/2021 HPV HIGH RISK TYPES DNA CERVI MAGGY HPV18 DNA negati ve negati ve Not Available [address], [place], [address], 10/27/2021 14:37:13 10/23/19 22 10/22/2021 HPV HIGH RISK TYPES DNA CERVI MAGGY final diagnosis see note below Not Available [address], [place], [address], 10/27/2021 14:37:13 Result Notes None recorded. Problems Name Status Onset Date Resolution Date Notes Provider Name and Address Organization Details Recorded Time Primary malignant neoplasm of uterine cervix Active 013 Stage 1A-1, on L[facility] at [facility]. 03/2013 cold knife cone by Dr. Alberto, no residual invasive ca, + DARA 3 with clear margins. Needs exam and pap q 3 mo for 2 years then q 6 mo x 3 years. Completed inceased survelliance 2018 *Date Onset: 01/2013 [place] [address] [address], [facility] [place], [address], [facility] FOCUSING MACHINE OPERATOR 10:09:47 Hypertensive disorder Active 021 pre-eclampsia in 1st preg, ghtn in second and 3rd pregnancies. Procardia pp 2019 [place] [address] [address], [facility] [place], [address], [facility] F[facility] MACH[facility] OPERATOR 1 10:14:27 History of gestational diabetes mellitus Active 019 on insulin, [place] [address] [address], [facility] [place] [place], [address], [facility] FOCUSING MACHINE OPERATOR 1 10:14:36 Problem Notes None recorded. Procedures Surgical History Date Name Laterality Status Provider Name and Address Organization Details Recorded Time 023 Date of Last Pap Smear completed Radha Webster null, [facility] FOCUSING MACHINE OPERATOR 11/17/2022 12:56:23 021 hernia repair completed ALPESH ROJAS [address] [address], [place], [address], [facility] FOCUSING MACHINE OPERATOR 04/15/2021 12:01:27 021 Abdominoplasty completed Adamaris Lopez (TERMED) null, [facility] FOCUSING MACHINE OPERATOR 11/09/2022 16:35:59 021 Unlisted px foot/toes completed Dariana Chau null, [facility] FOCUSING MACHINE OPERATOR 10/06/2020 11:33:57 019 total excision of bilateral [place] [address] [address] [facility], [place], [address], [facility] FOCUSING MACHINE OPERATOR 05/28/2020 10:20:01 019 Date of Last Mammogram completed Batsheva Catalan (TERMED) null, [facility] FOCUSING MACHINE OPERATOR 06/02/2020 14:47:00 cervical electroconization completed Adamaris Lopez (TERMED) null, [facility] FOCUSING MACHINE OPERATOR 11/09/2022 16:35:58 tooth extraction completed Adamaris Lopez (TERMED) null, [place] [facility] FOCUSING MACHINE OPERATOR 11/09/2022 16:35:59 loop electrosurgical excision procedure completed Adamaris Lopez (TERMED) null, [place] [facility] FOCUSING MACHINE OPERATOR 11/09/2022 16:35:59 [place] [address] [facility],[address], [place], [address], [place] [facility] FOCUSING MACHINE OPERATOR 05/28/2020 10:19:39 Imaging Results None recorded. Procedure Notes None recorded. Medical Equipment None Reported. Allergies Allergen ID Allergen Name Allergen Category Reaction Reaction Severity Criticality Documentation Date Start Date Code Code System Note Provider Name and Address Organization Details Recorded Time [id number] Substance with sulfonami de structure and antibacte rial mechanism of action (substanc e) medicatio n Not available Not available Not available 09/14/2019 [id number] SNOMED *Note : 06/01 - Not Available [facility] 0 16:58:50 Medications Name Sig Start Date Stop Date Status Note LastModified by Organization Details LastModified Time glycopyrrol ate 1 mg tablet TAKE ONE TABLET BY MOUTH EVERY DAY FOR HYPERHIDR OSIS - MAY INCREASE TO 2 TABLETS DAILY, IF NEEDED 11/09 completed Not Available Not Available Not Available clonidine HCl 0.1 mg tablet TAKE ONE TABLET BY MOUTH TWICE A DAY, HOLD IF SBP <120 04/15 completed Not Available Not Available Not Available ibuprofen 800 mg tablet TAKE 1 TABLET BY MOUTH THREE TIMES DAILY NEEDED FOR PAIN. 11/09 completed Not Available Not Available Not Available fluconazole 150 mg tablet TAKE ONE TABLET BY MOUTH ONCE WEEKLY FOR 6 MONTHS 11/09 completed Not Available Not Available Not Available cephalexin 250 mg capsule TAKE ONE CAPSULE BY MOUTH EVERY 6 HOURS UNTIL GONE 04/15 completed Not Available Not Available Not Available hydrocodone 5 mg-acetamin ophen 325 mg tablet TAKE 1-2 TABLETS BY MOUTH EVERY 4-6 HOURS NEEDED FOR PAIN. MAX 8 TABS/24 HOURS. active Not Available Not Available No t Available tretinoin 0.025 % topical cream APPLY A PEA-SIZED AMOUNT TO THE ENTIRE FACE AT BEDTIME FOR ACNE 11/09 completed Not Available Not Available Not Available meloxicam 15 mg tablet TAKE ONE TABLET BY MOUTH EVERY DAY 10/06 completed Not Available Not Available Not Available sucralfate 1 gram tablet TAKE ONE TABLET BY MOUTH FOUR TIMES A DAY 11/09 completed Not Available Not Available Not Available spironolact one 100 mg tablet TAKE 1 TABLET BY MOUTH ONCE DAILY FOR ACNE. 11/09 completed Not Available Not Available Not Available amlodipine 2.5 mg tablet TAKE ONE TABLET BY MOUTH EVERY DAY active Not Available Not Available No t Available omeprazole 40 mg capsule,del ayed release TAKE ONE CAPSULE BY MOUTH EVERY DAY BEFORE A MEAL active Not Available Not Available No t Available triamcinolo ne acetonide 0.1 % topical cream APPLY THIN LAYER TO DRY RASHY SKIN ON ARMS TWO TIMES A DAY FOR 10-14 DAYS 04/15 completed Not Available Not Available Not Available spironolact one 25 mg tablet TAKE 1 TABLET BY MOUTH ONCE DAILY FOR ACNE. 11/09 completed Not Available Not Available Not Available ondansetron 8 mg disintegrat ing tablet DISSOLVE ONE TABLET BY MOUTH EVERY 8 HOURS NEEDED FOR NAUSEA AND VOMITING 04/15 completed Not Available Not Available Not Available oxycodone-a cetaminophe n 5 mg-325 mg tablet TAKE ONE TO TWO TABLETS BY MOUTH EVERY 4 TO 6 HOURS NEEDED FOR PAIN . MAXIMUM OF 8 TABLETS IN 24 HOURS. 10/22 completed Not Available Not Available Not Available benzonatate 100 mg capsule TAKE ONE CAPSULE BY MOUTH THREE TIMES A DAY NEEDED 10/06 completed Not Available Not Available Not Available cephalexin 500 mg capsule TAKE ONE CAPSULE BY MOUTH FOUR TIMES A DAY FOR 7 DAYS 04/15 completed Not Available Not Available Not Available erythromyci n 5 mg/gram (0.5 %) eye ointment APPLY A RIBBON OF MEDICATIO N TO THE LOWER LID OF THE AFFECTED EYE(S) FOUR TIMES A DAY FOR 7 DAYS 05/20 completed Not Available Not Available Not Available esomeprazol e magnesium 40 mg capsule,del ayed release TAKE ONE CAPSULE BY MOUTH TWICE A DAY 30-60 MINUTES BEFORE EATING active Not Available Not Available No t Available triamcinolo ne acetonide 0.1 % topical ointment APPLY 2-3 TIMES DAILY FOR 7-10 DAYS FOR DRY IRRITATED SKIN 10/06 completed Not Available Not Available Not Available clindamycin phosphate 1 % topical swab APPLY TO AFFECTED AREA(S) WITH ACNE TOPICALLY ONCE DAILY active Not Available Not Available No t Available desonide 0.05 % lotion APPLY TWICE DAILY TO THE FACE FOR 1 WEEK - REPEAT NEEDED FOR FUTURE FLARES 04/15 completed Not Available Not Available Not Available mupirocin 2 % topical ointment APPLY THIN LAYER TO EXCORIATI ONS ON FACE THREE TIMES A DAY FOR 7-10 DAYS 10/06 completed Not Available Not Available Not Available lorazepam 1 mg tablet TAKE ONE TABLET BY MOUTH EVERY 8 HOURS NEEDED FOR ANXIETY/S LEEP 04/15 completed Not Available Not Available Not Available fluocinonid e 0.05 % topical solution APPLY TO AREAS OF ITCHY SKIN ON SCALP TWO TIMES A DAY FOR 2 WEEKS active Not Available Not Available No t Available estradiol 0.01% (0.1 mg/gram) vaginal cream INSERT 2 GRAMS VAGINALLY EVERY NIGHT FOR 14 DAYS THEN 1 GRAM TWICE WEEKLY active Not Available Not Available No t Available ondansetron 4 mg disintegrat ing tablet DISSOLVE ONE TABLET BY MOUTH EVERY 6 HOURS NEEDED FOR NAUSEA 11/09 completed Not Available Not Available Not Available naproxen 500 mg tablet 11/09 completed Not Available Not Available Not Available amoxicillin 875 mg-potassiu m clavulanate 125 mg tablet TAKE ONE TABLET BY MOUTH EVERY 12 HOURS FOR 10 DAYS 10/06 completed Not Available Not Available Not Available hydroxyzine pamoate 25 mg capsule TAKE 1-2 CAPSULES BY MOUTH EVERY 4-6 HOURS NEEDED FOR PAIN/MUSC LE SPASMS. 11/09 completed Not Available Not Available Not Available enoxaparin 40 mg/0.4 mL subcutaneou s syringe INJECT 1 PEN SUBCUTANE OUSLY ONCE DAILY FOR 5 DAYS 04/15 completed Not Available Not Available Not Available DentaGel 1.1 % BRUSH WITH PEA SIZED AMOUNT TWICE DAILY AFTER REGULAR BRUSHING active Not Available Not Available No t Available cyclobenzap rine 5 mg tablet 11/09 completed Not Available Not Available Not Available isotretinoi n 30 mg capsule TAKE ONE CAPSULE BY MOUTH TWICE A DAY WITH FOOD FOR ACNE active Not Available Not Available No t Available sodium fluoride 1.1 % dental paste APPLY A SMALL AMOUNT TO TOOTHBRUS H AND BRUSH FOR 2 MINUTES. SPIT OUT EXCESS. DO NOT RINSE OR EAT FOR 30 MINUTES. BRUSH TWICE DAILY, THIS REP active Not Available Not Available No t Available Lotemax 0.5 % eye ointment PLACE INTO THE LEFT UPPER EYELID THREE TIMES A DAY FOR 3 DAYS 11/09 completed Not Available Not Available Not Available lidocaine 5 % topical ointment APPLY TO AFFECTED AREA(S) TOPICALLY 1-4 TIMES DAILY NEEDED 11/09 completed Not Available Not Available Not Available Myorisan 40 mg capsule 10/06 completed Not Available Not Available Not Available Stimulant Laxative Plus 8.6 mg-50 mg tablet TAKE 2 TABLETS BY MOUTH DAILY NEEDED FOR CONSTIPAT ION. 11/09 completed Not Available Not Available Not Available ID NOW COVID-19 Test Kit DIRECTED 04/15 completed Not Available Not Available Not Available COVID-19 test specimen collection USE 1 KIT TODAY DIRECTED 04/15 completed Not Available Not Available Not Available Opzelura 1.5 % topical cream active Not Available Not Available Not Available Vitals Date Recorded Body height Body mass index (BMI) Body weight Systolic blood pressure Diastolic blood pressure Provider Name and Address Organization Details Last Updated DateTime 10/06/2020 165.1 cm 32.6 kg/m2 91887.1 g 128 mm[Hg] 84 mm[Hg] Dariana rhoades [facility] FOCUSING MACHINE OPERATOR 1 11:35:24 Date Recorded Body height Body mass index (BMI) Body weight Systolic blood pressure Diastolic blood pressure Provider Name and Address Organization Details Last Updated DateTime 04/15/2021 165.1 cm 30 kg/m2 97342.63 g 128 mm[Hg] 82 mm[Hg] Viviana Cheung( TERM) [place] [facility] FOCUSING MACHINE OPERATOR 2 11:48:08 Date Recorded Body height Body mass index (BMI) Body weight Systolic blood pressure Diastolic blood pressure Provider Name and Address Organization Details Last Updated DateTime 05/20/2021 165.1 cm 30 kg/m2 73262.63 g 120 mm[Hg] 90 mm[Hg] Viviana Cheung( TERM) [place] [facility] FOCUSING MACHINE OPERATOR 2 11:19:12 Date Recorded Body height Body mass index (BMI) Body weight Systolic blood pressure Diastolic blood pressure Provider Name and Address Organization Details Last Updated DateTime 10/22/2021 165.1 cm 29.9 kg/m2 65876.19 g 122 mm[Hg] 60 mm[Hg] Neda Le [place] [facility] FOCUSING MACHINE OPERATOR 2 16:17:09 Date Recorded Body weight Body mass index (BMI) Body height Systolic blood pressure Diastolic blood pressure Provider Name and Address Organization Details Last Updated DateTime 11/09/2022 30231.36 g 27.9 kg/m2 165.1 cm 126 mm[Hg] 72 mm[Hg] Adamaris Jessica (XAVI) [place] [facility] FOCUSING MACHINE OPERATOR 3 16:38:00 Date Recorded Body mass index (BMI) Body height Body weight Systolic blood pressure Diastolic blood pressure Provider Name and Address Organization Details Last Updated DateTime 04/15/2014 29.62 kg/m2 165.2015 cm 50176.44 186 g 116 mm[Hg] 80 mm[Hg] Not Available [facility] 0 08:08:16 Date Recorded Body mass index (BMI) Body height Body weight Systolic blood pressure Diastolic blood pressure Provider Name and Address Organization Details Last Updated DateTime 03/17/2015 28.79 kg/m2 165.2015 cm 62914.48 001 g 138 mm[Hg] 80 mm[Hg] Not Available [facility] 0 08:08:17 Date Recorded Body mass index (BMI) Body height Body weight Systolic blood pressure Diastolic blood pressure Provider Name and Address Organization Details Last Updated DateTime 10/15/2013 29.45 kg/m2 165.2016 cm 12107.84 949 g 106 mm[Hg] 78 mm[Hg] Not Available [facility] 0 08:08:16 Date Recorded Body mass index (BMI) Body height Body weight Systolic blood pressure Diastolic blood pressure Provider Name and Address Organization Details Last Updated DateTime 09/21/2016 32.42 kg/m2 165.2016 cm 85607.32 96 g 122 mm[Hg] 80 mm[Hg] Not Available [facility] 0 08:08:17 Date Recorded Body mass index (BMI) Body height Body weight Systolic blood pressure Diastolic blood pressure Provider Name and Address Organization Details Last Updated DateTime 10/21/2014 29.79 kg/m2 165.2015 cm 94908.03 423 g 140 mm[Hg] 82 mm[Hg] Not Available [facility] 0 08:08:17 Date Recorded Body mass index (BMI) Body weight Body height Systolic blood pressure Diastolic blood pressure Provider Name and Address Organization Details Last Updated DateTime 01/07/2014 29.45 kg/m2 88020.84 949 g 165.2016 cm 132 mm[Hg] 90 mm[Hg] Not Available [facility] 0 08:08:18 Date Recorded Body mass index (BMI) Body weight Body height Systolic blood pressure Diastolic blood pressure Provider Name and Address Organization Details Last Updated DateTime 01/20/2016 30.12 kg/m2 36392.21 897 g 165.2015 cm 120 mm[Hg] 72 mm[Hg] Not Available [facility] 0 08:08:17 Date Recorded Body mass index (BMI) Body weight Body height Systolic blood pressure Diastolic blood pressure Provider Name and Address Organization Details Last Updated DateTime 06/05/2018 36.11 kg/m2 60792.54 429 g 165.2015 cm 118 mm[Hg] 62 mm[Hg] Not Available [facility] 0 08:08:17 Date Recorded Body mass index (BMI) Body weight Body height Systolic blood pressure Diastolic blood pressure Provider Name and Address Organization Details Last Updated DateTime 06/02/2018 36.32 kg/m2 61748.53 4753 g 165.2015 cm 120 mm[Hg] 62 mm[Hg] Not Available [facility] 0 08:08:17 Date Recorded Body height Body temperature Body weight Body mass index (BMI) Systolic blood pressure Diastolic blood pressure Provider Name and Address Organization Details Last Updated DateTime 9 165.201 6 cm 98.2 [degF] 90634.3 5955 g 35.78 kg/m2 122 mm[Hg] 74 mm[Hg] Not Available [facility] 0 08:08:17 Date Recorded Body mass index (BMI) Body weight Body height Systolic blood pressure Diastolic blood pressure Provider Name and Address Organization Details Last Updated DateTime 12/15/2018 38.69 kg/m2 638875.2 84067 g 165.2016 cm 168 mm[Hg] 92 mm[Hg] Not Available [facility] 0 08:08:17 Date Recorded Body mass index (BMI) Body weight Body height Systolic blood pressure Diastolic blood pressure Provider Name and Address Organization Details Last Updated DateTime 12/11/2015 29.79 kg/m2 97823.03 423 g 165.2016 cm 122 mm[Hg] 80 mm[Hg] Not Available [facility] 0 08:08:16 Date Recorded Body mass index (BMI) Body weight Body height Systolic blood pressure Diastolic blood pressure Provider Name and Address Organization Details Last Updated DateTime 04/28/2018 37.17 kg/m2 052022.4 80191 g 165.2016 cm 126 mm[Hg] 82 mm[Hg] Not Available [facility] 0 08:08:17 Date Recorded Body mass index (BMI) Body height Body weight Systolic blood pressure Diastolic blood pressure Provider Name and Address Organization Details Last Updated DateTime 05/08/2018 36.51 kg/m2 165.2015 cm 57249.09 4131 g 108 mm[Hg] 70 mm[Hg] Not Available [facility] 0 08:08:17 Date Recorded Body mass index (BMI) Body height Body weight Systolic blood pressure Diastolic blood pressure Provider Name and Address Organization Details Last Updated DateTime 10/05/2016 32.45 kg/m2 165.2016 cm 15734.51 215 g 140 mm[Hg] 72 mm[Hg] Not Available [facility] 0 08:08:17 Date Recorded Body mass index (BMI) Body height Body weight Systolic blood pressure Diastolic blood pressure Provider Name and Address Organization Details Last Updated DateTime 09/20/2018 38.94 kg/m2 165.2016 cm 854261.6 1458 g 112 mm[Hg] 74 mm[Hg] Not Available [facility] 0 08:08:17 Date Recorded Body mass index (BMI) Body height Body weight Systolic blood pressure Diastolic blood pressure Provider Name and Address Organization Details Last Updated DateTime 05/24/2018 36.53 kg/m2 165.2016 cm 32808.52 5215 g 128 mm[Hg] 72 mm[Hg] Not Available [facility] 0 08:08:16 Date Recorded Body mass index (BMI) Body height Body weight Systolic blood pressure Diastolic blood pressure Provider Name and Address Organization Details Last Updated DateTime 07/14/2017 31.95 kg/m2 165.2015 cm 98444.73 504 g 130 mm[Hg] 74 mm[Hg] Not Available [facility] 0 08:08:17 Date Recorded Body height Body mass index (BMI) Body weight Systolic blood pressure Diastolic blood pressure Provider Name and Address Organization Details Last Updated DateTime 01/19/2019 165.2016 cm 35.53 kg/m2 32600.97 0995 g 120 mm[Hg] 78 mm[Hg] Not Available [facility] 0 08:08:17 Date Recorded Body height Body mass index (BMI) Body weight Systolic blood pressure Diastolic blood pressure Provider Name and Address Organization Details Last Updated DateTime 12/25/2018 165.2016 cm 37.48 kg/m2 191237.6 40869 g 148 mm[Hg] 86 mm[Hg] Not Available [facility] 0 08:08:17 Date Recorded Body height Body mass index (BMI) Body weight Systolic blood pressure Diastolic blood pressure Provider Name and Address Organization Details Last Updated DateTime 05/12/2018 165.2016 cm 36.82 kg/m2 849375.3 23939 g 124 mm[Hg] 72 mm[Hg] Not Available [facility] 0 08:08:17 Date Recorded Body weight Body mass index (BMI) Body height Systolic blood pressure Diastolic blood pressure Provider Name and Address Organization Details Last Updated DateTime 12/18/2018 068196.4 04884 g 37.98 kg/m2 165.2015 cm 146 mm[Hg] 80 mm[Hg] Not Available [facility] 0 08:08:16 Social History Question Answer Notes LastModified by Organizat ion Details LastModified Time Tobacco Smoking Status Former Smoker Tobacco *Status: Former *Qty: 0.5 ppd *Note: 06/01/2018 - Age Start/Stop: /quit 2008 Not Available [facility] 09/17/2019 13:42:06 What Is Your Level Of Alcohol Consumption? None Denies Alcohol [email or web address] Information not available 09/17/2019 What Is Your Level Of Caffeine Consumption? Moderate Caffeine *Status: Current Every Day *Qty: 2c/day efrisinger Information not available 11/09/2022 Sex: Female Functional Status None recorded. Mental Status None recorded. Family History Relationship Description Onset Age of this Age Resolved Age Notes Paternal Grandmother Glaucoma Glaucoma Mother Benign essential hypertension Hypertension Father Benign essential hypertension Hypertension Medical History Condition Response Neurology- Headaches/Migraines Y Cancer- Cervical Y Cardiology- High Blood Pressure Y Gynecological History Statement/Question Response History of Abnormal PAP Y HPV Test Negative Date of Last Mammogram 09/20/2018 Date of LMP 10/19/2022 History of Cervical Dysplasia Current Control Method Tubal Ligat ion Date of Last Pap Smear 11/09/2022 Obstetrics History GPAL:G 3 P 3 0 0 3 Type Value Multiple Births 0 Full Term 3 Induced 0 Spontaneous 0 Premature 0 Living 3 Ectopics 0 Total 3 Immunizations Vaccine Type Date Status Provider Name and Address Organization Details Recorded Time Tdap 06/18/2016 completed Not Available [facility] 01:10:07 Influenza, seasonal, injectable 11/14/2018 completed Not Available [facility] 09/17/2019 01:10:08 influenza, injectable, quadrivalent 04/02/2016 completed Not Available [facility] 09/17/2019 01:10:08 Past Encounters Encounter ID Performer Location Encounter Start Date Encounter Closed Date Diagnosis/Indication [id number] ROM DON MD [id number] [facility] [address] [place] [id number] 10/06/2020 11:24:11 10/06/2020 12:08:10 Gynecologic examination Screening for malignant neoplasm of cervix Menorrhagia History of malignant neoplasm of cervix Body mass index 30+ - obesity [id number] ALPESH [id number] [address] [place] [id number] 04/15/2021 11:40:05 04/15/2021 15:20:31 Vaginal irritation [id number] ALPESH ROJAS [id number] [facility] [address] [place] [id number] 05/20/2021 11:14:58 05/20/2021 12:27:55 Pruritus of vagina Candidiasis of vagina History of gestational diabetes mellitus [id number] ROM DON MD [id number] [facility] [address] [place] [address] 10/22/2021 16:06:45 10/23/2021 15:45:40 Gynecologic examination History of malignant neoplasm of cervix History of gestational diabetes mellitus [id number] MILA TIERNEY, AMPARO [id number] [place] [address] [place] [address],[address] [place] [address] 11/09/2022 16:29:46 11/11/2022 15:48:38 Gynecologic examination History of malignant neoplasm of cervix Venereal disease screening Vaginal dryness Health Concerns Section Related Observation LastModified by Organization Detai ls LastModified Time None Recorded Concern Status LastModified by Organization Details LastModified Time None Recorded Advance Directives Directive None Recorded Payers Encounter Date Sequence Insurance Name Policy Number Policy Syed Covered Member ID Syed Member ID Guarantor Name 11/09/2022 1 [place] Raghav L Owusu [id number] Satish L Owusu 10/22/2021 1 [place] Raghav L Owusu [id number] Satish L Owusu 05/20/2021 1 [place] Raghav L Owusu [id number] Satish L Owusu 04/15/2021 1 [place] Raghav L Owusu [id number] Satish L Owusu 10/06/2020 1 [place] Raghav Owusu [id number] Satish L Owusu Notes Date Note Type Note Provider Name and Address Organization Details Recorded Time 10/06/2020 text/html HPI Notes: Annua l Premenopausal ([facility]) Reported by patient. Patient Relationship To Practice: established patient Current Medical History: active medical problems stable Relevant Family History: no family history of breast cancer; no family history of ovarian cancer Menstrual History: Frequency of Menses: monthly; Duration of Flow: 3 days; Quantity of Flow: heavy Contraceptive Method: Current Method Used: tubal sterilization; satisfied Sexually Active: Yes: same partner Mammogram: up-to-date Pap Smear +/- HPV Cotesting: due Colonoscopy: not applicable pt here for annual exam. Youngest son 1.5 yo. He had surgery at 4 months for craniosynostosis. Doing well. Menses regular but very heavy. Got heavier after 2017 . Heavy x 3 days then very light. Leaks through at times. Mirena IUD or ablations have been discussed and again discussed today and pt declines any intervention. Ibuprofen some help. Still leaking milk since last child. Had abundant milk and donated 4500 cc. Not actively expressing or pumping now. s/p accutane for acne. Now only on spironolactone for acne but also says helps her BP got vasectomy in sympathy for pt who had her tubes removed at her last ventral hernia in midline. Has seen plastic surgeon and considering repair Pt has not had covid vaccine. [place] [id number], [place], [address], [facility] [employer] 10/06/2020 13:14:14 04/15/2021 text/html HPI Notes: Vagin al/ Vulvar Problem ([facility]) Reported by patient. * Location: internal; external; vaginal ; labia * Quality: itching; burning; rawness; irritation; stinging with urination * Severity: moderate * Duration: weeks; 2 months * Timing: Onset: gradual; recurrent; related to menses: worse before menses * Context: premenopausal; recent antibiotics; previous vaginitis; previous treatments; antibiotics w/ abdominoplasty in December 2020, secondary antibiotics a few weeks post-op due to wound dehisence * Associated Signs & Symptoms: no fever/chills; no urinary symptoms; no odor; itching; burning; no abnormal bleeding; painful intercourse Satish presents today for vaginitis concerns. Reports she is on her 3rd box of 3 day treatment and took one dose of diflucan over the past 2-3 months. Notes vaginal irritation, itching, and stinging with urination (when urine touches skin). States after treatment with monistat or diflucan, symptoms go away for a day or two then comes back. Has had yeast infections before, no bacterial vaginosis. ALPESH ROJAS [id number], [place], [address], [facility] - [employer] 04/15/2021 15:13:22 05/20/2021 text/html HPI Notes: Vagin al/ Vulvar Problem ([facility]) Reported by patient. * Location: internal; external; vaginal * Quality: itching; discharge; irritation * Severity: moderate * Duration: 2 weeks * Timing: Onset: gradual; not related to menses * Context: premenopausal; previous vaginitis * Associated Signs & Symptoms: no fever/chills; no urinary symptoms; no odor; itching; painful intercourse Satish presents today for concerns for vaginitis. She reports itching and vaginal dryness/irritation. She was seen about 4 weeks ago for similar concerns. Treated w/ diflucan 150mg x3 doses. [place] improvement of symptoms, but symptoms returned 2 weeks ago. 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 Concerned with having more antibiotics and yeast infections. Desires something for longer term. Had tummy tuck about 5 months ago (with multiple rounds of antibiotics) and has been struggling with yeast infections since then. DANNI TADEO, CALIN [address] [facility],[address], [place], [address], [place] - [employer] 05/20/2021 12:53:25 10/22/2021 text/html HPI Notes: Doug zamora Premenopausal ([facility]) Reported by patient. Patient Relationship To Practice: established patient Current Medical History: active medical problems stable Relevant Family History: no family history of breast cancer; no family history of ovarian cancer Menstrual History: Frequency of Menses: monthly; Duration of Flow: 3 days; Quantity of Flow: heavy Contraceptive Method: satisfied: tubal sterilization Sexually Active: Yes: spouse Mammogram: up-to-date Pap Smear +/- HPV Cotesting: due Colonoscopy: not applicable Pt here for annual exam. Pt here 05/2021 to see She for recurrent yeast infection since perioperative antibiotics last year. Now on weekly diflucan x 6 months. 3 weeks left. No sx currently. Boys 3, 5 yo. Menses regular but still heavy. Got heavier after 2017 . Heavy x 3 days then very light. Mirena IUD or ablations have been discussed and pt declines any intervention. Ibuprofen some help. s/p accutane for acne. Now only on spironolactone. Dose recently increased. s/p abdominoplasty and repair ventral hernia 12/2020. Pt saw endocrine for elevated fasting glucoses (checks at home since hx GDM). Hgb A1c at endocrine normal, 5.[place] [id number] [facility],[address], [place], [address], [place] - [employer] 10/23/2021 09:39:23 11/09/2022 text/html HPI Notes: Doug zamora Premenopausal ([facility]) Reported by patient. Patient Relationship To Practice: established patient Current Medical History: recent surgeries or hospitalizations; no active medical problems; Had 3 foot surgeries in the last year,hx of club foot Relevant Family History: no family history of breast cancer; no family history of ovarian cancer; no family history of uterine cancer; no family history of colon cancer; no family history of blood clots/DVT Menstrual History: Frequency of Menses: monthly; Quantity of Flow: moderate Contraceptive Method: satisfied: sterilization Sexually Active: Yes: new partner STI Screen: desires Health/Prevention: Exercise: no; Multivitamins: no; Vitamin D: no; Adequate Calcium Intake: yes; Tobacco Use: no; Safe at home: yes; Urinary Incontinence: no Mammogram: Will be 42 in December, initial screening recommended Pap Smear +/- HPV Cotesting: due; Hx of cervical cancer, yearly Thyroid/Lipid Screening: due Patient has: Primary Care Physician: no Notes: Doing ok, she and are probably getting . Satish is in counseling and coping. 1 new male partner about a month ago, agrees to GC swab. Has concerns regarding vaginal dryness, continues to have menses monthly. Estrogen cream discussed, would like to try MILA TIERNEY CNM [address] [facility],[address], [place], [address], [place] - [employer] 11/10/2022 18:03:32 OBGyn Episode Ob Episode Information Episode Created Date Number of Fetuses Patient Bloodtype Patient rh Status Prepregnancy Weight lbs Domestic Partner Domestic Partner Phone Father Name Snag Grinder Status 05/29/19 21 1 CLOSED Fetus Data First Name Last Name Admitted to NICU Weight (g) Sex Living Outcome Pediatric Complications Fetus ID Race Codes Race Delivery Type 3883.65 4704 M Full Term [id number] Vaginal Vacuum Assisted Bear Calculation Initial Bear Date Initial Exam Date Initial Exam Provider Initial Ultrasound Date Last Menstrual Period Date Ultra Sound Weeks Gestation 0 Eighteen To Twenty Week Bear Update Ultra Sound Date Fundal Height At Umbil Quickening Date Ultra Sound Latest Weeks Gestation Final Bear Confirmed By Final Bear Confirmed Date Final Bear Date Ultra Sound Latest Days Gestation 0 0 Menstrual History Last Menstrual Date Menses Monthly On Bcp Conception Prior Menses Frequency Hcg Plus Date Menarche Onset Age Delivery Information Delivery Date Delivery Type Labor Anesthesia Weeks Gestation Incision Type Labor Labor Length Hrs Delivered By Post Complications Tubal Sterilization Discharge Date Comments 4 Vee zamora dPatty pre-eclam psia Discharge Information Feeding Method Contraceptive Method Maternal HG B and HCT Levels Ob Episode Information Episode Created Date Number of Fetuses Patient Bloodtype Patient rh Status Prepregnancy Weight lbs Domestic Partner Domestic Partner Phone Father Name Snag Grinder Status 05/29/19 1 CLOSED Fetus Data First Name Last Name Admitted to NICU Weight (g) Sex Living Outcome Pediatric Complications Fetus ID Race Codes Race Delivery Type 3373.36 3704 M Full Term [id number] Bear Calculation Initial Bear Date Initial Exam Date Initial Exam Provider Initial Ultrasound Date Last Menstrual Period Date Ultra Sound Weeks Gestation 0 Eighteen To Twenty Week Bear Update Ultra Sound Date Fundal Height At Umbil Quickening Date Ultra Sound Latest Weeks Gestation Final Bear Confirmed By Final Bear Confirmed Date Final Bear Date Ultra Sound Latest Days Gestation 0 0 Menstrual History Last Menstrual Date Menses Monthly On Bcp Conception Prior Menses Frequency Hcg Plus Date Menarche Onset Age Delivery Information Delivery Date Delivery Type Labor Anesthesia Weeks Gestation Incision Type Labor Labor Length Hrs Delivered By Post Complications Tubal Sterilization Discharge Date Comments 7 Regional-Ep idural 37 arrest o f dilation, failed IOL, OP, Dr. Montague. T Discharge Information Feeding Method Contraceptive Method Maternal HG B and HCT Levels Ob Episode Information Episode Created Date Number of Fetuses Patient Bloodtype Patient rh Status Prepregnancy Weight lbs Domestic Partner Domestic Partner Phone Father Name Snag Grinder Status 05/29/19 21 1 CLOSED Fetus Data First Name Last Name Admitted to NICU Weight (g) Sex Living Outcome Pediatric Complications Fetus ID Race Codes Race Delivery Type 4082.32 8 M Full Term [id number] Bear Calculation Initial Bear Date Initial Exam Date Initial Exam Provider Initial Ultrasound Date Last Menstrual Period Date Ultra Sound Weeks Gestation 0 Eighteen To Twenty Week Bear Update Ultra Sound Date Fundal Height At Umbil Quickening Date Ultra Sound Latest Weeks Gestation Final Bear Confirmed By Final Bear Confirmed Date Final Bear Date Ultra Sound Latest Days Gestation 0 0 Menstrual History Last Menstrual Date Menses Monthly On Bcp Conception Prior Menses Frequency Hcg Plus Date Menarche Onset Age Delivery Information Delivery Date Delivery Type Labor Anesthesia Weeks Gestation Incision Type Labor Labor Length Hrs Delivered By Post Complications Tubal Sterilization Discharge Date Comments 9 Regional-Sp inal 38 Ghtn, procardia pp, GDMA2, repeat with bilateral salpingec bradley. Dr. Nieves Discharge Information Feeding Method Contraceptive Method Maternal HG B and HCT Levels
[2023-03-15 21:49] LABS: PCR FLU A Negative PCR FLU A (Negative); PCR FLU B POSITIVE PCR FLU B (Negative); PCR RSV Negative PCR RSV (Negative); SARS PCR* Negative SARS-CoV-2 (Negative)
== END 2023-03-15 22:41 | disposition home or self-care (01) ==
PROVIDERS: Emergency Provider Family Medicine; PCP Nurse Practitioner Family
DX: J10.1 Influenza due to other identified influenza virus with other respiratory manifestations (principal); J01.90 Acute sinusitis, unspecified
CPT/HCPCS: 71045; 87631; 87651; 99284

== ENCOUNTER 2023-03-29 21:13 | Emergency (ER) | payer BC, SELFPAY ==
[2023-03-29 21:24] VITALS: BP 108/67; PULSE 72; RESP 18; TEMP 36.7; O2SAT 99; BMI 27.5
--- NOTE | 2023-03-29 21:48 | ED.GENADULT ---
HPI - General Adult General Date Seen: 03/29/23 Chief complaint: Sore Throat Stated complaint: Strep Time Seen by Provider: 03/29/23 21:33 Source: patient Mode of arrival: ambulatory Limitations: no limitations History of Present Illness HPI narrative: Patient is a 42-year-old woman here for evaluation of sore throat which started earlier today. She also has a headache and eyes have been somewhat irritated. She reports that she just got over influenza B, then her kids were sick over the weekend and she was at [email or web address] all day Tuesday and then another all day Tuesday. 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 She has 1 son who was diagnosed with strep throat so she wanted to rule that out. She is also possibly interested in repeat viral testing if the strep is negative. She has not had fevers or cough. Related Data Home Medications Medication Instructions Recorded Confirmed spironolactone 100 mg tablet 100 mg PO QDAY 02/28/23 03/29/23 esomeprazole magnesium 40 mg 40 mg PO BID 03/29/23 03/29/23 capsule,delayed release Previous Rx's Medication Instructions Recorded albuterol sulfate 90 mcg/actuation 2 puff inhalation Q4-6H PRN 02/28/23 aerosol inhaler shortness of breath or wheezing #8.5 grams benzonatate 200 mg capsule 200 mg PO BID-TID PRN cough #20 02/28/23 caps Allergies Allergy/AdvReac Type Severity Reaction Status Date / Time Sulfa (Sulfonamide Allergy Severe Hives Verified 03/29/23 21:28 Antibiotics) PFSH FOR[facility]LY [facility], 1928–1983 Social History Smoking Status: Former smoker Do you use any of these nicotine containing products: None Second hand tobacco smoke exposure: No How often do you have a drink containing alcohol: 2-3 times a week AUDIT-C Alcohol total score: 3 Non-prescribed substance use: denies use Exam Narrative: Exam Narrative: Vital signs as noted above. In general, an alert, well-appearing woman. Head: Normocephalic, atraumatic. Eyes: Pupils are equal reactive. Extraocular movements are full. Conjunctivae are normal. ENT: Mucous membranes are moist. Throat is normal. No exudate or edema. Neck: Supple without lymphadenopathy. No stridor. Heart: Regular rate and rhythm. No murmur or rub. Lungs: Clear bilaterally. No increased work of breathing, crackles or wheezes. Neurologic: Patient is alert and oriented to person and place. Speech is fluent. Face is symmetric. Moves all extremities equally. Affect: Normal. Skin: Warm and dry. Well perfused. Const: Vital Signs, click to edit/add: Vital Signs - 24 hr 03/29/23 21:24 Temperature 98.1 F Pulse Rate [Pulse Oximeter] 72 Respiratory Rate 18 Blood Pressure [Ri ght Upper Arm] 108/67 Pulse Oximetry 99 Oxygen Delivery Me thod Room Air Documenting provider has reviewed patient's vital signs: yes Course Course ED Course: Rapid strep is negative. She would like repeat viral testing to be safe. Supportive care, return for worsening. Vital Signs Vital signs: Initial Vital Signs Temperature 98.1 F 03/29/23 21:24 Temperature Source Temporal Artery Scan 03/29/23 21:24 Pulse Rate 72 03/29/23 21:24 Respiratory Rate 18 03/29/23 21:24 Blood Pressure 108/67 03/29/23 21:24 Blood Pressure Mean 80 03/29/23 21:24 Blood Pressure Position Sitting 03/29/23 21:24 Pulse Oximetry 99 03/29/23 21:24 Oxygen Delivery Method Room Air 03/29/23 21:24 Vital Signs Temperature 98.1 F 03/29/23 21:24 Pulse Rate 72 03/29/23 21:24 Respiratory Rate 18 03/29/23 21:24 Blood Pressure 108/67 03/29/23 21:24 Pulse Oximetry 99 03/29/23 21:24 Oxygen Delivery Method Room Air 03/29/23 21:24 Temperature 98.1 F 03/29/23 21:24 Pulse Rate 72 03/29/23 21:24 Respiratory Rate 18 03/29/23 21:24 Blood Pressure 108/67 03/29/23 21:24 Pulse Oximetry 99 03/29/23 21:24 Oxygen Delivery Method Room Air 03/29/23 21:24 Medical Decision Making Lab Data Labs: Lab Results 03/29/23 Range/Units 21:32 Group A Strep DNA NOT DETECTED (Not Detectd) Discharge Plan Discharge Clinical Impression: Pharyngitis Patient Disposition: Home, Self-Care Condition: Stable Instructions: Pharyngitis (ED) Additional Instructions: Ibuprofen or Tylenol as needed for symptoms. Strep testing is negative. We will call you if your viral testing is positive, aside from Influenza B, for which you may still be testing positive from previous illness. Prescriptions: No Action spironolactone 100 mg tablet 100 mg PO QDAY albuterol sulfate 90 mcg/actuation HFA aerosol inhaler 2 puff inhalation Q4-6H PRN (Reason: shortness of breath or wheezing) Qty: 8.5 0RF benzonatate 200 mg capsule 200 mg PO BID-TID PRN (Reason: cough) Qty: 20 0RF esomeprazole magnesium 40 mg capsule,delayed release(DR/EC) 40 mg PO BID Follow Up/Referrals: Katerina Hankins, AICHA, RUBBER STAMP ASSEMBLER [Primary Care Provider] - Stand Alone Forms: [facility] Info Instructions
--- OUTSIDE RECORDS SUMMARY | 2023-03-29 21:51 | XMS_ITS | Encounter Summary ---
Author Name Unknown Organization [facility] Address [address] [place] [address] Care Team Providers Care Tractor Technician Name Role Phone No Ref-Primary, Physician Primary Care Provider Katerina Ratliff MD Unavailable [phone] Katerina Ratliff MD Unavailable [phone] [place] Ann MD Unavailable Encounter Details Date Type Department Care Team (Late st Contact Info) Description 03/22/2023 MyC Medical Advice [facility] [address] [place] [address] Michelle Horn Social History Tobacco Use Types Packs/Day Years Used Date Smoking Tobacco: Former Cigarettes 0 Smokeless Tobacco: Never Alcohol Use Standard Drinks/Week Comments No 0 (1 standard drink = 0.6 oz pur e alcohol) [place] Depression Scale Answer Date Recorded [place] Depression Score 6 12/10/2018 Last EPDS Self Harm Result Not on file 12/10 Adolescent Education Answer Date Record ed Getting School Help Needed Not on file 10/29 Sex and Gender Information Value Date Recorded Sex Assigned at Not on file Gender Identity Not on file Sexual Orientation Not on file documented as of this encounter Miscellaneous Notes * Telephone Encounter - Michelle Horn - 03/29/2023 11:21 AM CST Called to remind patient of their upcoming appointment with our GI clinic, on Apr 05 at 10:00am with Dr. [place] Ann. This appointment is scheduled as an in-person appt. Please arrive 15 minutes early to check in for your appointment. , if your appointment is virtual (video or telephone) you need to be in [place] for the visit. To reschedule or cancel patient to call [phone]. Michelle Horn ER TANK OPERATOR documented in this encounter Plan of Treatment Upcoming Encounters Date Type Department Care Team (Late st Contact Info) Description 04/05/2023 PRE VISIT [facility] [address] [phone] [place] Ann MD [address] [place] [phone] Previsit 04/05/2023 10:00 AM FILTER TANK OPERATOR Office Visit [facility] [address] [phone] Katerina Ratliff MD [address] [place], [place] [address] [place] Ann MD [address] [place] [address] documented as of this encounter Visit Diagnoses Not on filedocumented in this encounter Care Teams Tractor Technician Relationship Specialty Start Date End Date No Ref-Primary, Physician PCP - General 05/03/18 Katerina Ratliff MD [address] [place] [address] Assigned Surgical Provider 10/24/21 Katerina Ratliff MD [address] [place] [address] Surgeon Surgery 01/05/23 [place] Ann MD [address] [place] [address] Gastroenterology 01/05/23 documented as of this encounter
--- OUTSIDE RECORDS SUMMARY | 2023-03-29 21:51 | XMS_ITS | Encounter Summary ---
Author Name Unknown Organization [facility] Address [address] [place] [address] Care Team Providers Care Paper Products Machine Operator Name Role Phone No Ref-Primary, Physician Primary Care Provider Katerina Ratliff MD Unavailable [phone] Reason for Referral * Consultation (Routine: Next available opening) - Canceled Specialty Diagnoses / Procedures Referred By Yudelka garza Referred To Contact Gastroenterology Diagnoses Heartburn [place] Watts MD [address] [address] Referral ID Status Reason Start Date Expiration Date V isits Requested Visits Authorized [id number] Canceled 10/21/2022 10/21/2023 1 1 Question Answer Reason for Referral: General GI Scheduling Instructions: [facility] will call you to coordinate your care as prescribed by the provider. If you don? t hear from a telephone sales representative within 2 business days, please call . Comments Please be aware that coverage of these services is subject to the terms and limitations of your health insurance plan. Call member services at your health plan with any benefit or coverage questions. [facility] will call you to coordinate your care as prescribed by the provider. If you don? t hear from a telephone sales representative within 2 business days, please call . * Consultation (Routine: Next available opening) - Pending Review Specialty Diagnoses / Procedures Referred By Yudelka t Referred To Contact Gastroenterology Diagnoses Heartburn Katerina Ratliff MD [address] [place] [address] Referral ID Status Reason Start Date Expiration Date V isits Requested Visits Authorized [id number] Pending Review 10/20/2022 10/20/2023 1 1 Question Answer Reason for Referral: General GI Scheduling Instructions: [facility] will call you to coordinate your care as prescribed by the provider. If you don? t hear from a telephone sales representative within 2 business days, please call . Additional Information: heartburn, hx Schatzki's ring, ongoing RUQ pain after eating s/p lap luis felipe Comments Please be aware that coverage of these services is subject to the terms and limitations of your health insurance plan. Call member services at your health plan with any benefit or coverage questions. [facility] will call you to coordinate your care as prescribed by the provider. If you don? t hear from a telephone sales representative within 2 business days, please call . Reason for Visit * Reason Onset Date Comments Post-Op - General Surgery 10/19/2022 Medica tion refill Encounter Details Date Type Department Care Team (Late st Contact Info) Description 10/19/2022 Telephone [facility] [place] [address] [place] [address] Katerina Ratliff MD [address] [place], [place] [phone] Post-Op - General Surgery (Medication refill) Social History Tobacco Use Types Packs/Day Years Used Date Smoking Tobacco: Former Cigarettes 0 Smokeless Tobacco: Never Alcohol Use Standard Drinks/Week Comments No 0 (1 standard drink = 0.6 oz pur e alcohol) [place] Depression Scale Answer Date Recorded [place] Depression Score 6 12/10/2018 Last EPDS Self [...] If she can't get in with the [facility] in a reasonable time can you provide her with the number for [facility], they can often see patients sooner. [facility] I called patient with the above info. She is aware that refill was sent to [facility] in [place]. She will call our office if she does not get a call to set up appointment with [facility] in the next couple of days. * Telephone Encounter - Ruma Molina RN - 10/20/2022 3:02 PM CDT S/p EGD Procedure date: 02/22/22 Surgeon: Dr. [place] Patient is calling for refill of Nexium( esomeprazole) 40mg. Would like this to go to [facility] in [place]. She tells me that she continues to [...] RN call. She can be reached at [phone] Attempted to return patient's call - no answer. I left patient a VM message for patient to return my call. * Telephone Encounter - Sunitha Schilling - 10/19/2022 3:45 PM CDT Name of caller: Patient Reason for Call: Pt would like Esomeprazole refilled Surgeon: Dr. [place] Recent Surgery: No If yes, when & what type: See chart, surgery in March 01 and November Best phone number to reach pt at is: [phone] Ok to leave a message with medical info? Yes. Pharmacy preferred (if calling for a refill): [facility] documented in this encounter Plan of Treatment Upcoming Encounters Date Type Department Care Team (Late st Contact Info) Description 04/05/2023 PRE VISIT [facility] [address] [phone] [place] Ann MD [address] [place] [address] Previsit 04/05/2023 10:00 AM [employer]P [employer] Office Visit [facility] [address] [phone] Katerina [place] MD [facility] [place] [place] [address] [place] Ann MD [address] [place] [address] Scheduled Referrals Name Type Priority Associated Diagnoses Orde r Schedule Adult GI Patient Relations Manager Referral - Consult Only Referral Routine: Next available opening Heartburn Expected: 10/20/2022 (Approximate), Expires: 10/21/2023 Adult GI Patient Relations Manager Referral - Consult Only Referral Routine: Next available opening Heartburn Expected: 12/21/2022 (Approximate), Expires: 10/21/2023 documented as of this encounter Visit Diagnoses Diagnosis Heartburn documented in this encounter Care Teams Paper Products Machine Operator Relationship Specialty Start Date End Date No Ref-Primary, Physician PCP - General 05/03/18 Katerina Ratliff MD [address] [place] [address] Assigned Surgical Provider 10/24/21 documented as of this encounter
--- OUTSIDE RECORDS SUMMARY | 2023-03-29 21:51 | XMS_ITS | Referral Summary ---
Author Name Unknown Organization [facility] Address [address] [place] [address] Care Team Providers Care Floor Mechanic Name Role Phone No Ref-Primary, Physician Primary Care Provider Katerina Ratliff MD Unavailable [phone] Katerina Ratlfif MD Unavailable [phone] [place] Ann MD Unavailable Encounters Date Type Department Care Team Description 03/22/2023 MyC Medical Advice [facility] [address] [place] [address] Michelle Horn from Last 3 Months Allergies Active Allergy Reactions Criticality Noted Date [...] drink = 0.6 oz pur e alcohol) [place] Depression Scale Answer Date Recorded [place] Depression Score 6 12/10/2018 Last EPDS Self [...] Comments Blood Pressure 114/75 02/22/2022 1:40 PM CRUSHED STONE GRADER Pulse 68 02/22/2022 1:40 PM CRUSHED STONE GRADER Temperature 36.7 ??C (98.1 ??F) 11/26/2021 4:36 PM CD T Respiratory Rate 16 02/22/2022 1:40 PM CRUSHED STONE GRADER Oxygen Saturation 97% 02/22/2022 1:40 PM CRUSHED STONE GRADER Inhaled Oxygen Concentration - - Weight 80.3 kg (177 lb 1.6 oz) 11/26/2021 9:36 A M CDT Height 165.1 cm (5' 5) 10/05/2021 1:54 PM CDT Body Mass Index 29.47 10/05/2021 1:54 PM CDT Plan of Treatment Upcoming Encounters Date Type Department Care Team (Late st Contact Info) Description 04/05/2023 PRE VISIT [facility] [address] [place] [address] [place] Ann MD [address] [place] [address] Previsit 04/05/2023 10:00 AM CRUSHED STONE GRADER Office Visit [facility] [address] [place] [address] Katerina Ratliff MD [address] [place] [address] [place] Ann MD [address] [place] [address] Care Teams Floor Mechanic Relationship Specialty Start Date End Date No Ref-Primary, Physician PCP - General 05/03/18 Katerina Ratliff MD [address] [place] [address] Assigned Surgical Provider 10/24/21 Katerina Ratliff MD [address] [place] [address] Surgeon Surgery 01/05/23 [place] Ann MD [address] [place] [address] Gastroenterology 01/05/23
--- OUTSIDE RECORDS SUMMARY | 2023-03-29 21:51 | XMS_ITS | Clinical Summary ---
Author Name Unknown Organization [facility] Address [address] [place] [address] Care Team Providers Care Mortgage Or Loan Underwriter Name Role Phone No Ref-Primary, Physician Primary Care Provider Katerina Ratliff MD Unavailable Katerina Ratliff MD Unavailable [place] Ann MD Unavailable Allergies Active Allergy [...] for care in labor or delivery 017 Encounters Date Type Department Care Team Description 03/22/2023 MyC Medical Advice [facility] [address] [phone] Michelle Horn from Last 3 Months Family History Medical History Relation Comments Colon Cancer No family hx of Social History Tobacco Use Types Packs/Day Years Used Date Smoking Tobacco: Former Cigarettes 0 Smokeless Tobacco: Never Tobacco Cessation:Counseling Given: Not Answered Alcohol Use Standard Drinks/Week Comments No 0 (1 standard drink = 0.6 oz pur e alcohol) Ray Depression Scale Answer Date Recorded [place] Depression Score 6 12/10/2018 Last EPDS Self [...] Comments Blood Pressure 114/75 02/22/2022 1:40 PM CHILDCARE PROVIDER Pulse 68 02/22/2022 1:40 PM CHILDCARE PROVIDER Temperature 36.7 ??C (98.1 ??F) 11/26/2021 4:36 PM CD T Respiratory Rate 16 02/22/2022 1:40 PM CHILDCARE PROVIDER Oxygen Saturation 97% 02/22/2022 1:40 PM CHILDCARE PROVIDER Inhaled Oxygen Concentration - - Weight 80.3 kg (177 lb 1.6 oz) 11/26/2021 9:36 A M CDT Height 165.1 cm (5' 5) 10/05/2021 1:54 PM CDT Body Mass Index 29.47 10/05/2021 1:54 PM CDT Plan of Treatment Upcoming Encounters Date Type Department Care Team (Late st Contact Info) Description 04/05/2023 PRE VISIT [facility] Gastroenterology [address] [phone] [place] Ann MD [address] [place] [address] Previsit 04/05/2023 10:00 AM CHILDCARE PROVIDER Office Visit [facility] [address] [place] [phone] Katerina [place] MD [address] [place] [address] [place] Ann MD [address] [place] [phone] Health Maintenance Due Date Last Done Comments ADVANCE CARE PLANNING 1982 ANNUAL REVIEW OF HM ORDERS 1982 HEPATITIS B IMMUNIZATION (1 of 3 - 3-dose series) 1982 MAMMO SCREENING 1982 YEARLY PREVENTIVE VISIT 1982 COVID-19 Vaccine (#1) 06/24/1983 IPV IMMUNIZATION (3 of 3 - 4-dose series) 11/11/1988 05/12/1988, 11/22/1984 HEPATITIS C SCREENING 2000 INFLUENZA VACCINE (#1) 2022 9, 12/22/2017, 01/12/2017, Additional history exists LIPID 2022 PHQ-2 (once per calendar year) 2023 GLUCOSE 01/04/2025 01/04/2022, 102 , 04/20/2019, Additional history exists DTAP/TDAP/TD IMMUNIZATION (6 - Td or Tdap) 06/18/2026 06/18/2016, 01/16/2013, 09/27/1995, Additional history exists HPV TEST 11/10/2027 11/09/2022, 10/0 04/2022, 10/22/2021, Additional history exists PAP 11/10/2027 [...] age to complete this topic Care Teams Mortgage Or Loan Underwriter Relationship Specialty Start Date End Date No Ref-Primary, Physician PCP - General 05/03/18 Katerina Ratliff MD [address] [place] [address] Assigned Surgical Provider 10/24/21 Katerina Ratliff MD [address] [place] [address] Surgeon Surgery 01/05/23 [place] Ann MD [address] [place] [address] Gastroenterology 01/05/23
--- OUTSIDE RECORDS SUMMARY | 2023-03-29 21:52 | XMS_ITS | Data Portability ---
Author Name Unknown Address [address] [place] [id number] Phone [phone] [facility] OFF[facility] TECHNOLOGIST, [id number] Address [address] [place] [phone] Assessment Encounter Date Assessment Date Assessment LastModified [...] Lab Pap test, slide(s), cervical 2022 023 [facility], [address], [address], [place], [address], 3 07:26:24 CT + NG DNA, PCR, unspecified specimen 2022 023 [facility], [address], [address], [place], [address], 3 07:26:06 Pap test, slide(s), cervical [address] [facility], [address], [address], [place], [address], 3 03:42:33 bacterial vaginosis + vaginitis panel, vaginal 2021 022 [email or web address] [id number] [facility] , [address] [place] [address], [address], [place], [address], 3 18:54:55 wet mount panel, vaginal fluid 2021 022 [id number] [facility] , [address] [place] [address], [address], [place], [address], 2 12:51:33 culture, vaginal 2021 022 BAYLIS [facility], [address], [place], [address], 2 09:11:38 bacterial vaginosis + vaginitis panel, vaginal 2021 022 BAYLIS [id number] [facility] , [address], [address], [place], [address], 2 14:40:04 hemoglobin (Hb), fingerstick , blood 2020 021 [email or web address] [email or web address] [id number] [facility] , [address], [address], [place], [address], 12:05:51 pap, LB 2020 021 [facility], [address], [place], [address], 09:30:57 HPV DNA, high-risk 2020 021 [facility], [address], [place], [address], 09:30:57 Referral None recorded. Procedures None recorded. Surgeries None recorded. Imaging None recorded. Medication Orders estradiol 0.01% (0.1 mg/gram) vaginal cream 2022 023 [facility], [address] [place], [address], 3 17:47:34 fluconazole 150 mg tablet [address] [facility], [address] [place], [address], 2 12:51:33 fluconazole 150 mg tablet [address] [facility] [address], [address] [place], [address], 2 12:51:33 lidocaine 5 % topical ointment 2021 022 [facility], [address] [place], [address], 12:16:52 Patient TargetsNo targets recorded. Patient Instructions Encounter Date Encounter Id Patient Instructions Last Modified By Organization Details Last Modified Time 10/22/2021 [id number] - Encouraged breast self-awareness and monthly breast exams. - Reviewed current cervical cancer screening guidelines. Yearly paps due to history of cervical cancer - Discussed appropriate breast cancer screening and mammogram intervals. Start annual mammograms at age 40 - Return to clinic in 1 year for annual exam [email or web address] Not available 10/23/2021 09:38:53 05/20/[id number] - Vaginal hygien e discussed. - Encouraged wearing loose fitting, cotton underwear and avoid douching. No underwear at night. - Only use water to clean vaginally and if you use soap, try an unscented white bar soap like Dove. - Using condoms with intercourse can help decrease the likeliness of vaginal infections as well. Not available 05/20/2021 12:25:29 04/15/2021 [id number] - Vaginal hygien e discussed. - Encouraged [...] RepHresh OTC Not available 04/15/2021 15:12:52 10/06/2020 [id number] - Encouraged breast self-awareness and monthly breast [...] clinic in 1 year for annual exam [email or web address] Not available 10/06/2020 13:13:50 Reason for Referral None Reported. Results Created Date Observation Date Name Description Value Unit Range Abnormal Flag LastModifiedBy Organization Detail LastModifiedTime 10/06/2020 hemog lobin (Hb), finge rstic k, blood fingerstick hemoglobin 13.3 g/dL 12.0-1 5.0 Not Available [id number] [facility] [address] [facility] [address], [place], [address], 10/06/2020 11:36:22 10/07/19 21 10/06/2020 HPV HIGH RISK DNA WITH 16/18 GENOT YPING HPV high risk type 16 negati ve for HPV type 16. negati ve for HPV type 16. Not Available [facility] [address] [place], [address], 10/28/2020 09:30:57 10/07/19 21 10/06/2020 HPV HIGH RISK DNA WITH 16/18 GENOT YPING HPV high risk type 18 negati ve for HPV type 18. negati ve for HPV type 18. Not Available [facility] [address] [place], [address], 10/28/2020 09:30:57 10/07/19 21 10/06/2020 HPV HIGH RISK DNA WITH 16/18 GENOT YPING HPV other high risk types negati ve for other high risk HPV types. negati ve for other high risk HPV types. Not Available [facility] [address], [place], [address], 10/28/2020 09:30:57 10/07/19 21 10/06/2020 PAP TEST (CALIBRATION LABORATORY TECHNICIAN CYTOL OGY) case report see note Not Available [facility] [address] [place], [address], 10/28/2020 09:30:57 04/16/19 22 04/15/2021 bacte rial vagin osis + vagin itis panel , vagin al gardnerella negati ve negati ve Not Available [id number] [facility] [address] [facility] [address], [place], [address], 04/15/2021 12:16:11 04/16/19 22 04/15/2021 bacte rial vagin osis + vagin itis panel , vagin al trichomonas negati ve negati ve Not Available [address] [address], [place], [address], 04/15/2021 12:16:11 04/16/19 22 04/15/2021 bacte rial vagin osis + vagin itis panel , vagin al derek positi ve negati ve Not Available [address] [address], [place], [address], 04/15/2021 12:16:11 05/21/19 22 05/22/2021 BV+YE AST CULTU RE bv, sialidase activity tnp Not Available [facility] ([facility]) [address] [place], [address], 05/23/2021 09:11:38 05/21/19 22 05/23/2021 BV+YE AST CULTU RE vaginal yeast culture positi ve negati ve abnormal Not Available [facility] ([facility]) [address] [place], [address], 05/23/2021 09:11:38 05/21/19 22 05/22/[address] PROBL EM request problem tnp Not Available [facility] ([facility]) [address] [place], [address], 05/23/2021 09:11:38 05/21/19 22 05/20/2021 bacte rial vagin osis + vagin itis panel , vagin al gardnerella neg negati ve Not Available [address], [place], [address], 05/20/2021 12:00:40 05/21/19 22 05/20/2021 bacte rial vagin osis + vagin itis panel , vagin al trichomonas neg negati ve Not Available [address], [place], [address], 05/20/2021 12:00:40 05/21/19 22 05/20/2021 bacte rial vagin osis + vagin itis panel , vagin al derek neg negati ve Not Available [address], [place], [address], 05/20/2021 12:00:40 05/21/19 22 05/20/2021 wet mount panel , vagin al fluid Unknown Analyte < or = 4.5 Not Available [address], [place], [address], 05/20/2021 12:00:49 05/21/19 22 05/20/2021 wet mount panel , vagin al fluid Unknown Analyte <20% Not Available [address], [place], [address], 05/20/2021 12:00:49 05/21/19 22 05/20/2021 wet mount panel , vagin al fluid Unknown Analyte negati ve Not Available [address], [place], [address], 05/20/2021 12:00:49 05/21/19 22 05/20/2021 wet mount panel , vagin al fluid Unknown Analyte negati ve Not Available [address], [place], [address], 05/20/2021 12:00:49 05/21/19 22 05/20/2021 wet mount panel , vagin al fluid Unknown Analyte positi ve Not Available [address], [place], [address], 05/20/2021 12:00:49 05/21/19 22 05/20/2021 wet mount panel , vagin al fluid Unknown Analyte positi ve Not Available [address], [place], [address], 05/20/2021 12:00:49 05/21/19 22 05/20/2021 wet mount panel , vagin al fluid Unknown Analyte Rare Not Available [address], [place], [address], 05/20/2021 12:00:49 05/21/19 22 05/20/2021 wet mount panel , vagin al fluid Unknown Analyte Rods Not Available [address], [place], [address], 05/20/2021 12:00:49 05/21/19 22 05/20/2021 wet mount panel , vagin al fluid Unknown Analyte Negati ve Not Available [address], [place], [address], 05/20/2021 12:00:49 05/21/19 22 05/20/2021 wet mount panel , vagin al fluid Unknown Analyte Negati ve Not Available [address], [place], [address], 05/20/2021 12:00:49 10/23/19 22 10/22/2021 GYNEC OLOGI C CYTOL OGY (PAP SMEAR ) gynecologic cytology see result s below Not Available [address], [place], [address], 10/27/2021 14:37:12 10/23/19 22 10/22/2021 HPV HIGH RISK TYPES DNA CERVI MAGGY other HR HPV negati ve negati ve Not Available [address], [place], [address], 10/27/2021 14:37:13 10/23/19 22 10/22/2021 HPV HIGH RISK TYPES DNA CERVI MAGGY HPV16 DNA negati ve negati ve Not Available [address], [place], [address], 10/27/2021 14:37:13 10/23/19 22 10/22/2021 HPV HIGH RISK TYPES DNA CERVI MAGGY HPV18 DNA negati ve negati ve Not Available [address], [place], [address], 10/27/2021 14:37:13 10/23/19 22 10/22/2021 HPV HIGH RISK TYPES DNA CERVI MAGGY final diagnosis see note below Not Available [address], [place], [address], 10/27/2021 14:37:13 Result Notes None recorded. Problems [...] 2018 *Date Onset: 01/[place] [id number] [address], [place], [address], [facility] - [facility] OFFICE TECHNOLOGIST 10:09:47 Hypertensive disorder Active 021 pre-eclampsia in 1st preg, ghtn in second and 3rd pregnancies. Procardia pp [place] [address] [address], [facility] [place], [address], [facility] 1 10:14:27 History of gestational diabetes mellitus Active 019 on insulin, [place] [id number] [address], [place], [address], [facility] - [facility] OFFICE TECHNOLOGIST 1 10:14:36 Problem Notes None recorded. Procedures Surgical History Date Name Laterality Status Provider Name and Address Organization Details Recorded Time 023 Date of Last Pap Smear completed Radha Webster null, [facility] OFFICE TECHNOLOGIST 11/17/2022 12:56:23 021 hernia repair completed ALPESH ROJAS [address], [place], [address], [facility] - [facility] OFFICE TECHNOLOGIST 04/15/2021 12:01:27 021 Abdominoplasty completed Adamaris Lopez (TERMED) null, [facility] OFFICE TECHNOLOGIST 11/09/2022 16:35:59 021 Unlisted px foot/toes completed Dariana Chau null, [facility] OFFICE TECHNOLOGIST 10/06/2020 11:33:57 019 total excision of bilateral [place] [address] [address] [facility],[address], [place], [address], [facility] - [facility] OFFICE TECHNOLOGIST 05/28/2020 10:20:01 019 Date of Last Mammogram completed Batsheva Catalan (TERMED) null, [facility] OFFICE TECHNOLOGIST 06/02/2020 14:47:00 cervical electroconization completed Adamaris Lopez (TERMED) null, [facility] OFFICE TECHNOLOGIST 11/09/2022 16:35:58 tooth extraction completed Adamaris Lopez (TERMED) null, [place] [facility] OFFICE TECHNOLOGIST 11/09/2022 16:35:59 loop electrosurgical excision procedure completed Adamaris Lopez (TERMED) null, [place] [facility] OFFICE TECHNOLOGIST 11/09/2022 16:35:59 [place] [address] [facility],[address], [place], [address], [place] [facility] OFFICE TECHNOLOGIST 05/28/2020 10:19:39 Imaging Results None recorded. Procedure Notes None recorded. Medical Equipment None Reported. Allergies Allergen ID Allergen Name Allergen Category Reaction Reaction Severity Criticality Documentation Date Start Date Code Code System Note Provider Name and Address Organization Details Recorded Time [id number] Substance with sulfonami de structure and antibacte rial mechanism of action (substanc e) medicatio n Not available Not available Not available 09/14/2019 [id number] SNOMED *Note : 06/01 - Not Available [facility] 0 16:58:50 Medications Name Sig Start Date [...] Updated DateTime 10/06/2020 165.1 cm 32.6 kg/m2 35971.1 g 128 mm[Hg] 84 mm[Hg] Dariana rhoades [facility] OFFICE TECHNOLOGIST 1 11:35:24 Date Recorded Body height Body mass index (BMI) Body weight Systolic blood pressure Diastolic blood pressure Provider Name and Address Organization Details Last Updated DateTime 04/15/2021 165.1 cm 30 kg/m2 50295.63 g 128 mm[Hg] 82 mm[Hg] Viviana Cheung( TERM) verona [facility] OFFICE TECHNOLOGIST 2 11:48:08 Date Recorded Body height Body mass index (BMI) Body weight Systolic blood pressure Diastolic blood pressure Provider Name and Address Organization Details Last Updated DateTime 05/20/2021 165.1 cm 30 kg/m2 77031.63 g 120 mm[Hg] 90 mm[Hg] Viviana Cheung( TERM) verona [facility] OFFICE TECHNOLOGIST 2 11:19:12 Date Recorded Body height Body mass index (BMI) Body weight Systolic blood pressure Diastolic blood pressure Provider Name and Address Organization Details Last Updated DateTime 10/22/2021 165.1 cm 29.9 kg/m2 16319.19 g 122 mm[Hg] 60 mm[Hg] Neda Le verona [facility] OFFICE TECHNOLOGIST 2 16:17:09 Date Recorded Body weight Body mass index (BMI) Body height Systolic blood pressure Diastolic blood pressure Provider Name and Address Organization Details Last Updated DateTime 11/09/2022 86959.36 g 27.9 kg/m2 165.1 cm 126 mm[Hg] 72 mm[Hg] Adamaris Jessica (XAVI) [place] [facility] OFFICE TECHNOLOGIST 3 16:38:00 Date Recorded Body mass index (BMI) Body height Body weight Systolic blood pressure Diastolic blood pressure Provider Name and Address Organization Details Last Updated DateTime 04/15/2014 29.62 kg/m2 165.2015 cm 25750.44 186 g 116 mm[Hg] 80 mm[Hg] Not Available [facility] 0 08:08:16 Date Recorded Body mass index (BMI) Body height Body weight Systolic blood pressure Diastolic blood pressure Provider Name and Address Organization Details Last Updated DateTime 03/17/2015 28.79 kg/m2 165.2015 cm 17743.48 001 g 138 mm[Hg] 80 mm[Hg] Not Available [facility] 0 08:08:17 Date Recorded Body mass index (BMI) Body height Body weight Systolic blood pressure Diastolic blood pressure Provider Name and Address Organization Details Last Updated DateTime 10/15/2013 29.45 kg/m2 165.2016 cm 88553.84 949 g 106 mm[Hg] 78 mm[Hg] Not Available [facility] 0 08:08:16 Date Recorded Body mass index (BMI) Body height Body weight Systolic blood pressure Diastolic blood pressure Provider Name and Address Organization Details Last Updated DateTime 09/21/2016 32.42 kg/m2 165.2016 cm 74278.32 96 g 122 mm[Hg] 80 mm[Hg] Not Available [facility] 0 08:08:17 Date Recorded Body mass index (BMI) Body height Body weight Systolic blood pressure Diastolic blood pressure Provider Name and Address Organization Details Last Updated DateTime 10/21/2014 29.79 kg/m2 165.2015 cm 26836.03 423 g 140 mm[Hg] 82 mm[Hg] Not Available [facility] 0 08:08:17 Date Recorded Body mass index (BMI) Body weight Body height Systolic blood pressure Diastolic blood pressure Provider Name and Address Organization Details Last Updated DateTime 01/07/2014 29.45 kg/m2 89589.84 949 g 165.2016 cm 132 mm[Hg] 90 mm[Hg] Not Available [facility] 0 08:08:18 Date Recorded Body mass index (BMI) Body weight Body height Systolic blood pressure Diastolic blood pressure Provider Name and Address Organization Details Last Updated DateTime 01/20/2016 30.12 kg/m2 43840.21 897 g 165.2015 cm 120 mm[Hg] 72 mm[Hg] Not Available [facility] 0 08:08:17 Date Recorded Body mass index (BMI) Body weight Body height Systolic blood pressure Diastolic blood pressure Provider Name and Address Organization Details Last Updated DateTime 06/05/2018 36.11 kg/m2 26544.54 429 g 165.2015 cm 118 mm[Hg] 62 mm[Hg] Not Available [facility] 0 08:08:17 Date Recorded Body mass index (BMI) Body weight Body height Systolic blood pressure Diastolic blood pressure Provider Name and Address Organization Details Last Updated DateTime 06/02/2018 36.32 kg/m2 89356.53 4753 g 165.2015 cm 120 mm[Hg] 62 mm[Hg] Not Available [facility] 0 08:08:17 Date Recorded Body height Body temperature Body weight Body mass index (BMI) Systolic blood pressure Diastolic blood pressure Provider Name and Address Organization Details Last Updated DateTime 9 165.201 6 cm 98.2 [degF] 05413.3 5955 g 35.78 kg/m2 122 mm[Hg] 74 mm[Hg] Not Available [facility] 0 08:08:17 Date Recorded Body mass index (BMI) Body weight Body height Systolic blood pressure Diastolic blood pressure Provider Name and Address Organization Details Last Updated DateTime 12/15/2018 38.69 kg/m2 752082.2 33594 g 165.2016 cm 168 mm[Hg] 92 mm[Hg] Not Available [facility] 0 08:08:17 Date Recorded Body mass index (BMI) Body weight Body height Systolic blood pressure Diastolic blood pressure Provider Name and Address Organization Details Last Updated DateTime 12/11/2015 29.79 kg/m2 06280.03 423 g 165.2016 cm 122 mm[Hg] 80 mm[Hg] Not Available [facility] 0 08:08:16 Date Recorded Body mass index (BMI) Body weight Body height Systolic blood pressure Diastolic blood pressure Provider Name and Address Organization Details Last Updated DateTime 04/28/2018 37.17 kg/m2 237284.4 66731 g 165.2016 cm 126 mm[Hg] 82 mm[Hg] Not Available [facility] 0 08:08:17 Date Recorded Body mass index (BMI) Body height Body weight Systolic blood pressure Diastolic blood pressure Provider Name and Address Organization Details Last Updated DateTime 05/08/2018 36.51 kg/m2 165.2015 cm 63385.09 4131 g 108 mm[Hg] 70 mm[Hg] Not Available [facility] 0 08:08:17 Date Recorded Body mass index (BMI) Body height Body weight Systolic blood pressure Diastolic blood pressure Provider Name and Address Organization Details Last Updated DateTime 10/05/2016 32.45 kg/m2 165.2016 cm 84160.51 215 g 140 mm[Hg] 72 mm[Hg] Not Available [facility] 0 08:08:17 Date Recorded Body mass index (BMI) Body height Body weight Systolic blood pressure Diastolic blood pressure Provider Name and Address Organization Details Last Updated DateTime 09/20/2018 38.94 kg/m2 165.2016 cm 168559.6 1458 g 112 mm[Hg] 74 mm[Hg] Not Available [facility] 0 08:08:17 Date Recorded Body mass index (BMI) Body height Body weight Systolic blood pressure Diastolic blood pressure Provider Name and Address Organization Details Last Updated DateTime 05/24/2018 36.53 kg/m2 165.2016 cm 64341.52 5215 g 128 mm[Hg] 72 mm[Hg] Not Available [facility] 0 08:08:16 Date Recorded Body mass index (BMI) Body height Body weight Systolic blood pressure Diastolic blood pressure Provider Name and Address Organization Details Last Updated DateTime 07/14/2017 31.95 kg/m2 165.2015 cm 86699.73 504 g 130 mm[Hg] 74 mm[Hg] Not Available [facility] 0 08:08:17 Date Recorded Body height Body mass index (BMI) Body weight Systolic blood pressure Diastolic blood pressure Provider Name and Address Organization Details Last Updated DateTime 01/19/2019 165.2016 cm 35.53 kg/m2 13897.97 0995 g 120 mm[Hg] 78 mm[Hg] Not Available [facility] 0 08:08:17 Date Recorded Body height Body mass index (BMI) Body weight Systolic blood pressure Diastolic blood pressure Provider Name and Address Organization Details Last Updated DateTime 12/25/2018 165.2016 cm 37.48 kg/m2 454869.6 00225 g 148 mm[Hg] 86 mm[Hg] Not Available [facility] 0 08:08:17 Date Recorded Body height Body mass index (BMI) Body weight Systolic blood pressure Diastolic blood pressure Provider Name and Address Organization Details Last Updated DateTime 05/12/2018 165.2016 cm 36.82 kg/m2 373255.3 20086 g 124 mm[Hg] 72 mm[Hg] Not Available [facility] 0 08:08:17 Date Recorded Body weight Body mass index (BMI) Body height Systolic blood pressure Diastolic blood pressure Provider Name and Address Organization Details Last Updated DateTime 12/18/2018 931559.4 34155 g 37.98 kg/m2 165.2015 cm 146 mm[Hg] 80 mm[Hg] Not Available [facility] 0 08:08:16 Social History Question Answer Notes LastModified by Organizat ion Details LastModified Time Tobacco Smoking Status Former Smoker Tobacco *Status: Former *Qty: 0.5 ppd *Note: 06/01/2018 - Age Start/Stop: /quit 2008 Not Available [facility] 09/17/2019 13:42:06 What Is Your Level [...] Recorded Time Tdap 06/18/2016 completed Not Available [facility] 01:10:07 Influenza, seasonal, injectable 11/14/2018 completed Not Available [facility] 09/17/2019 01:10:08 influenza, injectable, quadrivalent 04/02/2016 completed Not Available [facility] 09/17/2019 01:10:08 Past Encounters Encounter ID Performer Location Encounter Start Date Encounter Closed Date Diagnosis/Indication [id number] ROM DON MD [id number]_DZEYGR [facility] [address] [place] [id number] 10/06/2020 11:24:11 10/06/2020 12:08:10 Gynecologic examination Screening for malignant neoplasm of cervix Menorrhagia History of malignant neoplasm of cervix Body mass index 30+ - obesity [id number] ALPESH ROJAS004_S[place] [facility] [address] [place] [address] 04/15/2021 11:40:05 04/15/2021 15:20:31 Vaginal irritation [id number] ALPESH ROJAS BV316_SEPAFU [facility] [address] [place] [id number] 05/20/2021 11:14:58 05/20/2021 12:27:55 Pruritus of vagina Candidiasis of vagina History of gestational diabetes mellitus [id number] ROM DON MD [id number] [facility] [address] [place] [address] 10/22/2021 16:06:45 10/23/2021 15:45:40 Gynecologic examination History of malignant neoplasm of cervix History of gestational diabetes mellitus [id number] MILA TIERNEY, AMPARO [id number] [place] [address] [place] [address],[address] [place] [id number] 11/09/2022 16:29:46 11/11/2022 15:48:38 Gynecologic examination History [...] ID Guarantor Name 11/09/2022 1 [place] Raghav L Owusu [id number] Satish L Owusu 10/22/2021 1 [place] Raghav L Owusu [id number] Satish L Owusu 05/20/2021 1 [place] Raghav L Owusu [id number] Satish L Owusu 04/15/2021 1 [place] Raghav L Owusu [id number] Satish L Owusu 10/06/2020 1 [place] Raghav Owusu [id number] Satish L Owusu Notes Date Note Type [...] [place] [address] [address], [place], [address], [facility] OFFICE TECHNOLOGIST 10/06/2020 13:14:14 04/15/2021 text/html HPI Notes: Vagin [...] infections before, no bacterial vaginosis. ALPESH ROJAS [id number] [address], [place], [address], [facility] - [facility] OFFICE TECHNOLOGIST 04/15/2021 15:13:22 05/20/2021 text/html HPI Notes: Vagin [...] concerns. Treated w/ diflucan 150mg x3 doses. [place] improvement of symptoms, but symptoms returned 2 weeks ago. 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 Concerned with having more antibiotics and yeast infections. Desires something for longer term. Had tummy tuck about 5 months ago (with multiple rounds of antibiotics) and has been struggling with yeast infections since then. DANNI TADEO, CALIN [address] [facility],[address], [place], [address], [place] [facility] OFFICE TECHNOLOGIST 05/20/2021 12:53:25 10/22/2021 text/html HPI Notes: Doug [...] at endocrine normal, 5.1[place] [id number] [facility] [facility],[address], [place], [address], [place] [facility] OFFICE TECHNOLOGIST 10/23/2021 09:39:23 11/09/2022 text/html HPI Notes: Doug [...] would like to try MILA TIERNEY CNM [address] [facility],[address], [place], [address], [place] [facility] OFFICE TECHNOLOGIST 11/10/2022 18:03:32 OBGyn Episode Ob Episode Information Episode Created Date Number of Fetuses Patient Bloodtype Patient rh Status Prepregnancy Weight lbs Domestic Partner Domestic Partner Phone Father Name Superintendent Local Status 05/29/19 21 1 CLOSED Fetus Data First Name Last Name Admitted to NICU Weight (g) Sex Living Outcome Pediatric Complications Fetus ID Race Codes Race Delivery Type 3883.65 4704 M Full Term [id number] Vaginal Vacuum Assisted Bear Calculation Initial Bear [...] Domestic Partner Domestic Partner Phone Father Name Superintendent Local Status 05/29/19 1 CLOSED Fetus Data First Name Last Name Admitted to NICU Weight (g) Sex Living Outcome Pediatric Complications Fetus ID Race Codes Race Delivery Type 3373.36 3704 M Full Term [id number] Bear Calculation Initial Bear Date Initial Exam [...] Domestic Partner Domestic Partner Phone Father Name Superintendent Local Status 05/29/19 21 1 CLOSED Fetus Data First Name Last Name Admitted to NICU Weight (g) Sex Living Outcome Pediatric Complications Fetus ID Race Codes Race Delivery Type 4082.32 8 M Full Term [id number] Bear Calculation Initial Bear Date Initial Exam [...]
--- OUTSIDE RECORDS SUMMARY | 2023-03-29 21:52 | XMS_ITS | Clinical Summary ---
Author Name Unknown Organization [facility] Address [place], [place] [address] Care Team Providers Care Computer Aided Design Drafter Name Role Phone Katerina Hankins NP Primary Care Provider [phone] Allergies Active Allergy Reactions Criticality Noted Date [...] DAY NEEDED FOR COUGH 0 02/28/2023 Active methylPREDNISolo ne (Medrol, Campbell,) 4 mg tabletIndication s:Sinusitis, bacterial,Influe nza Take by mouth as instructed per packaging. 21 Tablet 0 03/18/2023 Active Lotemax 0.5 % ophthalmic ointment PLACE [...] 03/10/2023 Discontinued (*Patient states no longer taking) amoxicillin-clav ulanate 875-125 mg tablet (AUGMENTIN)Indic ations:Sinusitis , bacterial,Bronch itis Take 1 Tablet by mouth two times daily with meals for 10 days. 20 Tablet 0 03/10/2023 03/20/2023 predniSONE (DELTASONE) 20 mg tabletIndication s:Sinusitis, bacterial,Bronch itis Take 2 Tablets (40 mg) by mouth once daily with a meal for 5 days. 10 Tablet 0 03/10/2023 03/15/2023 fluconazole (Diflucan) 150 mg tabletIndication s:Antibiotic-ind uced [...] Encounters Date Type Department Care Team Description 03/18/2023 Orders Only [facility] [address] [place] [address] Nayely Abreu PA <No scans attached> 03/15/2023 Orders Only [facility] Scanner 1 scan: (1-Ord) [facility], XR CHEST 1V PORTABLE, 03/15/2023 03/15/2023 Nurse Triage [facility] [address] [facility] [place] [address] Katerina Hankins NP Sinus Problem 03/10/2023 2:20 PM LOSS PREVENTION AND SAFETY MANAGER Office Visit [facility] [address] [facility] [place] [address] Kiera Humphrey MD Cough (Cough x 3 weeks, sinus congestion, fevers ) 03/10/2023 Travel 12/27/2022 3:30 PM LOSS PREVENTION AND SAFETY MANAGER Ancillary Procedure [facility] [address] [place] [phone] 12/27/2022 Travel from Last 3 Months Immunizations Name [...] Comments Blood Pressure 120/60 03/10/2023 2:27 PM LOSS PREVENTION AND SAFETY MANAGER Pulse 90 03/10/2023 2:27 PM LOSS PREVENTION AND SAFETY MANAGER Temperature 37.5 ??C (99.5 ??F) 03/10/2023 2:27 PM CS T Respiratory Rate 16 09/10/2021 10:16 AM CDT Oxygen Saturation 98% 03/10/2023 2:27 PM LOSS PREVENTION AND SAFETY MANAGER Inhaled Oxygen Concentration - - Weight 74.9 kg (165 lb 3.2 oz) 03/10/2023 2:27 P M LOSS PREVENTION AND SAFETY MANAGER Height 163.9 cm (5' 4.53) 04/27/2022 2:48 PM CD T Body Mass Index 27.89 04/27/2022 2:48 PM CDT Plan of Treatment Health Maintenance Due Date Last Done Comments COVID-19 vaccine series (#1) 06/24/1983 HIV for age 15-65 1997 Hepatitis C screening for age 18-79 2000 Pap test for age 21-65 01/09/2020 9 (Completed outside of [facility]), 07/23/2013, 09/06/2012 (Completed outside of [facility]), Additional history exists Influenza for age 9-49 10/08/2022 9, 12/22/2017, 01/12/2017, Additional history exists Depression screening for age 12+ 04/16/2023 04/15/2022, 11/25/2020, 10/02/2020, Additional history exists BMI (ht and wt on same day) for age 18+ 04/28/2023 04/27/2022, 04/15/2022, 11/24/2021, Additional history exists Tetanus booster 06/18/2026 06/18/2016, 01/07, 09/27/1995 Tdap Completed 06/18/2016, 01/16/2013 Pneumococcal series for age 6-64 Aged Out No longer eligible based on patient's age to complete this topic Procedures Procedure Name Priority Date/Time Associated Diagnosis Comments SCAN-RADIOLOGY REPORT 03/15/2023 12:00 AM LOSS PREVENTION AND SAFETY MANAGER US NECK OR HEAD SOFT TISSUE QUAN 12/27/2022 4:34 PM LOSS PREVENTION AND SAFETY MANAGER Lump in neck from Last 3 Months Results * SCAN-RADIOLOGY REPORT (03/15/2023 12:00 AM LOSS PREVENTION AND SAFETY MANAGER) Anatomical Region Laterality Modality Other Scanner OTHER * US NECK OR HEAD SOFT TISSUE (12/27/2022 4:34 PM LOSS PREVENTION AND SAFETY MANAGER) Anatomical Region Laterality Modality NECK Ultrasound 12/27/2022 4:34 PM LOSS PREVENTION AND SAFETY MANAGER Impressions 12/27/2022 4:40 PM LOSS PREVENTION AND SAFETY MANAGER 1. ??The area palpable abnormality in the left neck correlates with a morphologically normal, subcentimeter cervical chain lymph node. Narrative 12/27/2022 4:40 PM LOSS PREVENTION AND SAFETY MANAGER For Patients: As a result of the Cures Act, medical imaging exams and procedure reports are released immediately into your electronic medical record. You may view this report before your referring provider. If you have questions, please contact your health care provider. EXAM: US NECK OR HEAD SOFT TISSUE LOCATION: [facility] DATE: 12/27/2022 INDICATION: Lump In Neck COMPARISON: [...] US NECK OR HEAD SOFT TISSUE LOCATION: [facility] DATE: 12/27/2022 INDICATION: Lump In Neck COMPARISON: [...] normal, subcentimeter cervical chain lymph node. Katerina RETANA from Last 3 Months Advance Directives Latest Code Status on File Code Status Date Activated Date Inactivated Comments Full Code 03/14/2013 5:39 AM 03/14/2013 12:17 PM Code Status History Code Status Date Activated Date Inactivated Comments Full Code 03/13/2013 3:35 PM 03/13/2013 3:35 PM Care Teams Computer Aided Design Drafter Relationship Specialty [place] [address] [place] [address] PCP - General Nurse Practitioner 02/21/19
--- OUTSIDE RECORDS SUMMARY | 2023-03-29 21:52 | XMS_ITS | Encounter Summary ---
Author Name Unknown Organization [facility] Address [address] [place] [address] Care Team Providers Care Anesthesia Director Name Role Phone No Ref-Primary, Physician Primary Care Provider Katerina Ratliff MD Unavailable Katerina Ratliff MD Unavailable [phone] Sawyer Ann MD Unavailable Encounter Details Date Type Department Care Team (Late Contact Info) Description 10/04/2022 Abstract [facility] [address] [facility] [address] [place] [address] Katerina Ratliff MD [address] [place] [address] Social History Tobacco Use Types Packs/Day Years Used Date Smoking Tobacco: Former Cigarettes 0 Smokeless Tobacco: Never Alcohol Use Standard Drinks/Week Comments No 0 (1 standard drink = 0.6 oz pur e alcohol) Viking Depression Scale Answer Date Recorded Viking Depression Score 6 12/10/2018 Last EPDS Self Harm Result Not on file 12/10 Sex and Gender Information Value Date Recorded Sex Assigned at Not on file Gender Identity Not on file Sexual Orientation Not on file documented as of this encounter Plan of Treatment Upcoming Encounters Date Type Department Care Team (Late Contact Info) Description 04/05/2023 PRE VISIT [facility] [address] [phone] Sawyer Ann MD [address] [place] [phone] Previsit 04/05/2023 10:00 AM CREDIT CONTROL CLERK Office Visit [facility] [address] [phone] Katerina Ratliff MD [address] [place] [address] Sawyer Ann MD [address] [place] [phone] documented as of this encounter Visit Diagnoses Not on filedocumented in this encounter Care Teams Anesthesia Director Relationship Specialty Start Date End Date No Ref-Primary, Physician PCP - General 05/03/18 Katerina Ratliff MD [address] [place] [address] Assigned Surgical Provider 10/24/21 Katerina Ratliff MD [address] [place] [address] Surgeon Surgery 01/05/23 Sawyer Ann MD [address] [place] [address] Gastroenterology 01/05/23 documented as of this encounter
--- OUTSIDE RECORDS SUMMARY | 2023-03-29 21:52 | XMS_ITS | Encounter Summary ---
Author Name Unknown Organization [facility] Address [address] [place] [address] Care Team Providers Care Public Health Educator Name Role Phone No Ref-Primary, Physician Primary Care Provider Katerina Ratliff MD Unavailable Katerina Ratliff MD Unavailable [phone] Sawyer Ann MD Unavailable Reason for Visit * Reason Onset Date Comments Refill Request 10/04/2022 Encounter Details Date Type Department Care Team (Late st Contact Info) Description 10/04/2022 Refill [facility] [place] [address] [facility] [address] [place] [address] Katerina Ratliff MD [address] [place], [place] [phone] Refill Request Social History Tobacco Use Types Packs/Day Years Used Date Smoking Tobacco: Former Cigarettes 0 Smokeless Tobacco: Never Alcohol Use Standard Drinks/Week Comments No 0 (1 standard drink = 0.6 oz pur e alcohol) Concord Depression Scale Answer Date Recorded Concord Depression Score 6 12/10/2018 Last EPDS Self Harm Result Not on file 12/10 Sex and Gender Information Value Date Recorded Sex Assigned at Not on file Gender Identity Not on file Sexual Orientation Not on file documented as of this encounter Plan of Treatment Upcoming Encounters Date Type Department Care Team (Late st Contact Info) Description 04/05/2023 PRE VISIT [facility] [address] [phone] Sawyer Ann MD [address] [place] [address] Previsit 04/05/2023 10:00 AM ACADEMIC ADVISING DIRECTOR Office Visit [facility] [address] [phone] Katerina Ratliff MD [address] [place] [address] Sawyer Ann MD [address] [place] [phone] documented as of this encounter Visit Diagnoses Not on filedocumented in this encounter Care Teams Public Health Educator Relationship Specialty Start Date End Date No Ref-Primary, Physician PCP - General 05/03/18 Katerina Ratliff MD [address] [place] [address] Assigned Surgical Provider 10/24/21 Katerina Ratliff MD [address] [place] [address] Surgeon Surgery 01/05/23 Sawyer Ann MD [address] [place] [id number] Gastroenterology 01/05/23 documented as of this encounter
[2023-03-29 22:03] LABS: Strep A DNA Probe* NOT DETECTED (Not Detectd)
[2023-03-29 23:02] LABS: PCR FLU A Negative PCR FLU A (Negative); PCR FLU B Negative PCR FLU B (Negative); PCR RSV Negative PCR RSV (Negative); SARS PCR* Negative SARS-CoV-2 (Negative)
--- NOTE | 2023-03-29 23:13 | ED.NURSE ---
Notified patient that viral testing was all negative.
== END 2023-03-29 22:22 | disposition home or self-care (01) ==
PROVIDERS: Emergency Provider Emergency Medicine; PCP Nurse Practitioner Family
DX: J02.9 Acute pharyngitis, unspecified (principal)
CPT/HCPCS: 87631; 87651; 99282; 99283

== ENCOUNTER 2023-04-07 21:26 | Emergency (ER) | payer BC, SELFPAY ==
[2023-04-07 21:31] VITALS: BP 178/90; PULSE 90; RESP 16; TEMP 36.6; O2SAT 98; BMI 27.5
--- NOTE | 2023-04-07 21:35 | ED.GENADULT ---
HPI - General Adult General Time Seen by Provider: 21:35 Date Seen: 04/07/23 Chief complaint: Unspecified Complaint, Adult Stated complaint: bleeding hemorrhoid Time Seen by Provider: 04/07/23 21:28 Source: patient and RN notes reviewed Mode of arrival: ambulatory Limitations: no limitations History of Present Illness HPI narrative: This 42-year-old female coming in with a thrombosed hemorrhoid. She has had 1 excised before. Started noticing just a little irritation yesterday, is increased. Pain is intolerable. She thinks that happen because she was sick in coughing so much with influenza about 3 weeks ago. She denies any constipation. She did try to go to clinic and was turned away. Related Data Home Medications Medication Instructions Recorded Confirmed spironolactone 100 mg tablet 100 mg PO QDAY 02/28/23 04/07/23 esomeprazole magnesium 40 mg 40 mg PO BID 03/29/23 03/29/23 capsule,delayed release Previous Rx's Medication Instructions Recorded albuterol sulfate 90 mcg/actuation 2 puff inhalation Q4-6H PRN 02/28/23 aerosol inhaler shortness of breath or wheezing #8.5 grams benzonatate 200 mg capsule 200 mg PO BID-TID PRN cough #20 02/28/23 caps Allergies Allergy/AdvReac Type Severity Reaction Status Date / Time Sulfa (Sulfonamide Allergy Severe Hives Verified 03/29/23 21:28 Antibiotics) Review of Systems Narrative: As per HPI. PFSH PFSH Social History Smoking Status: Former smoker Do you use any of these nicotine containing products: None Second hand tobacco smoke exposure: No How often do you have a drink containing alcohol: 2-3 times a week AUDIT-C Alcohol total score: 3 Non-prescribed substance use: denies use Exam Const: Vital Signs, click to edit/add: Vital Signs - 24 hr 04/07/23 21:31 Temperature 97.9 F Pulse Rate [Pulse Oximeter] 90 Respiratory Rate 16 Blood Pressure [Ri ght Upper Arm] 178/90 H Pulse Oximetry 98 Oxygen Delivery Me thod Room Air 42-year-old female is alert, interactive, no apparent distress. On inspection of her anus, has a thrombosed hemorrhoid along her right lateral side. Patient consent was obtained for excision. Patient had 5 mL of 0.25% bupivacaine drawn up and about 2 mL used locally. This gave good anesthesia. Scalp full was then used to cut through the surface of the skin overlying the purplish thrombosis. A Sophia was used to bluntly dissect the from post clot out. She tolerated this well. Minimal bleeding. Documenting provider has reviewed patient's vital signs: yes Course Vital Signs Vital signs: Initial Vital Signs Temperature 97.9 F 04/07/23 21:31 Temperature Source Temporal Artery Scan 04/07/23 21:31 Pulse Rate 90 04/07/23 21:31 Pulse Rhythm Regular 04/07/23 21:31 Respiratory Rate 16 04/07/23 21:31 Blood Pressure 178/90 H 04/07/23 21:31 Blood Pressure Mean 119 H 04/07/23 21:31 Blood Pressure Position Sitting 04/07/23 21:31 Pulse Oximetry 98 04/07/23 21:31 Oxygen Delivery Method Room Air 04/07/23 21:31 Vital Signs Temperature 97.9 F 04/07/23 21:31 Pulse Rate 90 04/07/23 21:31 Respiratory Rate 16 04/07/23 21:31 Blood Pressure 178/90 H 04/07/23 21:31 Pulse Oximetry 98 04/07/23 21:31 Oxygen Delivery Method Room Air 04/07/23 21:31 Temperature 97.9 F 04/07/23 21:31 Pulse Rate 90 04/07/23 21:31 Respiratory Rate 16 04/07/23 21:31 Blood Pressure 178/90 H 04/07/23 21:31 Pulse Oximetry 98 04/07/23 21:31 Oxygen Delivery Method Room Air 04/07/23 21:31 Discharge Plan Discharge Clinical Impression: External hemorrhoid, thrombosed Patient Disposition: Home, Self-Care Condition: Stable Instructions: Hemorrhoids (ED), Thrombosed Hemorrhoid (ED) Additional Instructions: Tylenol and ibuprofen per bottle directions if needed for discomfort. You may have some bleeding from this area, use gauze and protective undergarments/pads as needed. Recommend doing warm tub baths twice a day for the next 3-5 days. Can get in the shower or tub after defecation to help keep the area clean. Try to avoid any constipation to help limit development of hemorrhoids. Activity Level: Activity as Tolerated Prescriptions: No Action spironolactone 100 mg tablet 100 mg PO QDAY albuterol sulfate 90 mcg/actuation HFA aerosol inhaler 2 puff inhalation Q4-6H PRN (Reason: shortness of breath or wheezing) Qty: 8.5 0RF benzonatate 200 mg capsule 200 mg PO BID-TID PRN (Reason: cough) Qty: 20 0RF esomeprazole magnesium 40 mg capsule,delayed release(DR/EC) 40 mg PO BID Follow Up/Referrals: Katerina Hankins, AICHA, GUIDE CRUISE [Primary Care Provider] - Stand Alone Forms: [employer] Info Instructions
== END 2023-04-07 22:07 | disposition home or self-care (01) ==
LOC: ED 21:59
PROVIDERS: Emergency Provider Family Medicine; PCP Nurse Practitioner Family
DX: K64.5 Perianal venous thrombosis (principal)
CPT/HCPCS: 46320; 99283

== ENCOUNTER 2023-04-08 08:15 | Emergency (ER) | payer BC, SELFPAY ==
[2023-04-08 08:33] VITALS: BP 111/77; PULSE 78; RESP 20; TEMP 36.8; O2SAT 100; BMI 27.5
--- NOTE | 2023-04-08 08:54 | ED.GENADULT ---
HPI - General Adult General Date Seen: 04/08/23 Chief complaint: Skin/Abscess/Foreign Body Stated complaint: Blood clot/hemorrhoid pain post op Time Seen by Provider: 04/08/23 08:19 Source: patient Mode of arrival: ambulatory Limitations: no limitations History of Present Illness HPI narrative: Patient is a 42-year-old female presenting to the emergency department for thrombosed external hemorrhoid. This started a couple days ago. She tried to go to a primary care provider in Urgent Care and they sent her to the emergency department. The thrombosed hemorrhoid was removed last night but she states the pain came back quite a bit. She has had a thrombosed hemorrhoid before and she states after the clot is removed in the past she had no further pain. Denies fevers, chills, weakness. No other concerns noted. Related Data Home Medications Medication Instructions Recorded Confirmed spironolactone 100 mg tablet 100 mg PO QDAY 02/28/23 04/07/23 esomeprazole magnesium 40 mg 40 mg PO BID 03/29/23 03/29/23 capsule,delayed release Previous Rx's Medication Instructions Recorded albuterol sulfate 90 mcg/actuation 2 puff inhalation Q4-6H PRN 02/28/23 aerosol inhaler shortness of breath or wheezing #8.5 grams benzonatate 200 mg capsule 200 mg PO BID-TID PRN cough #20 02/28/23 caps Allergies Allergy/AdvReac Type Severity Reaction Status Date / Time Sulfa (Sulfonamide Allergy Severe Hives Verified 03/29/23 21:28 Antibiotics) Review of Systems Narrative: Pertinent systems reviewed and were negative unless stated HPI PFSH PFSH Social History Smoking Status: Former smoker Do you use any of these nicotine containing products: None Second hand tobacco smoke exposure: No How often do you have a drink containing alcohol: 2-3 times a week How many standard drinks containing alcohol do you have on a typical day: 1 or 2 How often do you have six or more drinks on one occasion: Never AUDIT-C Alcohol total score: 3 Non-prescribed substance use: denies use service: No Exam Narrative: Exam Narrative: Const: Well-nourished, Well-developed, in mild distress Eyes: PERRL, no conjunctival injection, and symmetrical lids HENT: Atraumatic external nose and ears. Moist mucous membranes. Rectal: Thrombosed hemorrhoid seen on the right side of the rectum with the previous incision neel noted that appears closed up. MSK:Extremities w/o deformity, Normal Active ROM Skin: Warm, Dry. No rashes or lesions. Neuro: Normal Muscle tone, No focal neurological deficits. Psych: Awake, Alert, & Oriented x3. Appropriate mood and affect. Const: Vital Signs, click to edit/add: Vital Signs - 24 hr 04/08/23 08:33 Temperature 98.2 F Pulse Rate [Pulse Oximeter] 78 Respiratory Rate 20 Blood Pressure [Ri ght Upper Arm] 111/77 Pulse Oximetry 100 Oxygen Delivery Me thod Room Air Course Vital Signs Vital signs: Initial Vital Signs Temperature 98.2 F 04/08/23 08:33 Temperature Source Temporal Artery Scan 04/08/23 08:33 Pulse Rate 78 04/08/23 08:33 Pulse Rhythm Regular 04/08/23 08:33 Respiratory Rate 20 04/08/23 08:33 Blood Pressure 111/77 04/08/23 08:33 Blood Pressure Mean 88 04/08/23 08:33 Pulse Oximetry 100 04/08/23 08:33 Oxygen Delivery Method Room Air 04/08/23 08:33 Vital Signs Temperature 98.2 F 04/08/23 08:33 Pulse Rate 78 04/08/23 08:33 Respiratory Rate 20 04/08/23 08:33 Blood Pressure 111/77 04/08/23 08:33 Pulse Oximetry 100 04/08/23 08:33 Oxygen Delivery Method Room Air 04/08/23 08:33 Temperature 98.2 F 04/08/23 08:33 Pulse Rate 78 04/08/23 08:33 Respiratory Rate 20 04/08/23 08:33 Blood Pressure 111/77 04/08/23 08:33 Pulse Oximetry 100 04/08/23 08:33 Oxygen Delivery Method Room Air 04/08/23 08:33 Medical Decision Making MDM Narrative Medical decision making narrative: Patient is a 42-year-old female presenting for a thrombosed hemorrhoid. If on re-evaluation there is a hemorrhoid there still and I will do an anal block to see if I can better evaluate it. I did do a perianal block and were able to put a large elliptical incision and the hemorrhoid. I have was able to remove a small amount of clotted blood. Patient will be discharged home. Told to take Preparation-H with lidocaine. She states her previous medication did not have lidocaine in it and she will go pick it up today. She will be discharged home. Discharge Plan Discharge Clinical Impression: External hemorrhoid, thrombosed Patient Disposition: Home, Self-Care Condition: Stable Instructions: Hemorrhoids (DC) Additional Instructions: Use preparation H with lidocaine. The pain will come back it may take several days to go away. In the meantime the a sit on a donut pillow for comfort. Prescriptions: No Action spironolactone 100 mg tablet 100 mg PO QDAY albuterol sulfate 90 mcg/actuation HFA aerosol inhaler 2 puff inhalation Q4-6H PRN (Reason: shortness of breath or wheezing) Qty: 8.5 0RF benzonatate 200 mg capsule 200 mg PO BID-TID PRN (Reason: cough) Qty: 20 0RF esomeprazole magnesium 40 mg capsule,delayed release(DR/EC) 40 mg PO BID Follow Up/Referrals: Katerina Hankins, AICHA, SHAKER SCREEN OPERATOR [Primary Care Provider] - Stand Alone Forms: [employer] Info Instructions
== END 2023-04-08 09:30 | disposition home or self-care (01) ==
LOC: ED 09:27
PROVIDERS: Emergency Provider Student in an Organized Health Care Education/Training Program; PCP Nurse Practitioner Family
DX: K64.5 Perianal venous thrombosis (principal)
CPT/HCPCS: 46083; 99282; 99283

== ENCOUNTER 2023-04-17 12:13 | Emergency (ER) | payer BC, SELFPAY ==
[2023-04-17 12:18] VITALS: BP 145/86; PULSE 74; RESP 16; TEMP 37; O2SAT 100; BMI 27.5
--- NOTE | 2023-04-17 12:36 | ED_ITS ---
HPI - General Adult General Chief complaint: Eye Problems Stated complaint: pink eye Time Seen by Provider: 04/17/23 12:20 Source: patient Mode of arrival: ambulatory Limitations: no limitations History of Present Illness HPI narrative: 42-year-old female coming in today complaining of 2 days of a right red, irritated and goopy eye. She woke up this morning she could not open her eye because there was so much globe around it. She has also noticed now that the left eye starting to get irritated. She denies any fevers or chills. She does have cold symptoms. She denies any changes in her vision. She has not have ocular pain, no pain with movement. She feels that her upper and lower eyelids are also irritated. Patient does work with [employer], many of whom have been diagnosed with conjunctivitis. Related Data Home Medications Medication Instructions Recorded Confirmed spironolactone 100 mg tablet 100 mg PO QDAY 02/28/23 04/07/23 esomeprazole magnesium 40 mg 40 mg PO BID 03/29/23 03/29/23 capsule,delayed release Previous Rx's Medication Instructions Recorded albuterol sulfate 90 mcg/actuation 2 puff inhalation Q4-6H PRN 02/28/23 aerosol inhaler shortness of breath or wheezing #8.5 grams benzonatate 200 mg capsule 200 mg PO BID-TID PRN cough #20 02/28/23 caps Allergies Allergy/AdvReac Type Severity Reaction Status Date / Time Sulfa (Sulfonamide Allergy Severe Hives Verified 04/17/23 12:21 Antibiotics) Review of Systems Status of ROS: Reports: 10 or more systems reviewed and unremarkable except as noted in History and below [facility] Social History Smoking Status: Former smoker Do you use any of these nicotine containing products: None Second hand tobacco smoke exposure: No How often do you have a drink containing alcohol: 2-3 times a week How many standard drinks containing alcohol do you have on a typical day: 1 or 2 How often do you have six or more drinks on one occasion: Never AUDIT-C Alcohol total score: 3 Non-prescribed substance use: denies use service: No Exam Narrative: Exam Narrative: Well-nourished well-developed patient in no acute distress. Alert and oriented. Answers questions appropriately. Mood and affect are appropriate. Thoughts are goal oriented and rational. No tangential or magical thinking noted. Patient speaks in full sentences without needing to catch her breath. HEENT: Normocephalic atraumatic. Pupils are equally round reactive to light. Extraocular muscles are intact. Conjunctivae are injected bilaterally, right greater than the left. Yellow exudate present on the right side. Moist mucous membranes. Upper and lower eyelids are slightly irritated bilaterally, no evidence of infection. No fluctuance or tenderness to palpation. Skin: Well perfused . Const: Vital Signs, click to edit/add: Vital Signs - 24 hr 04/17/23 12:18 Temperature 98.6 F Pulse Rate [Right Pulse Oximeter] 74 Respiratory Rate 16 Blood Pressure [Ri ght Upper Arm] 145/86 H Pulse Oximetry 100 Oxygen Delivery Me thod Room Air Course Vital Signs Vital signs: Initial Vital Signs Temperature 98.6 F 04/17/23 12:18 Temperature Source Temporal Artery Scan 04/17/23 12:18 Pulse Rate 74 04/17/23 12:18 Pulse Rhythm Regular 04/17/23 12:18 Pulse Strength 3+ Normal 04/17/23 12:18 Respiratory Rate 16 04/17/23 12:18 Blood Pressure 145/86 H 04/17/23 12:18 Blood Pressure Mean 105 04/17/23 12:18 Blood Pressure Position Sitting 04/17/23 12:18 Pulse Oximetry 100 04/17/23 12:18 Oxygen Delivery Method Room Air 04/17/23 12:18 Vital Signs Temperature 98.6 F 04/17/23 12:18 Pulse Rate 74 04/17/23 12:18 Respiratory Rate 16 04/17/23 12:18 Blood Pressure 145/86 H 04/17/23 12:18 Pulse Oximetry 100 04/17/23 12:18 Oxygen Delivery Method Room Air 04/17/23 12:18 Temperature 98.6 F 04/17/23 12:18 Pulse Rate 74 04/17/23 12:18 Respiratory Rate 16 04/17/23 12:18 Blood Pressure 145/86 H 04/17/23 12:18 Pulse Oximetry 100 04/17/23 12:18 Oxygen Delivery Method Room Air 04/17/23 12:18 Medical Decision Making MDM Narrative Medical decision making narrative: 42-year-old female with conjunctivitis. Will treat with erythromycin ointment. Follow-up as needed. Discharge Plan Discharge Clinical Impression: Conjunctivitis Patient Disposition: Home, Self-Care Condition: Stable Additional Instructions: Use a small ribbon of the ointment 2 times per day for the next 5 days. Follow-up with your primary care provider if you feel that you are not improving. Prescriptions: No Action spironolactone 100 mg tablet 100 mg PO QDAY albuterol sulfate 90 mcg/actuation HFA aerosol inhaler 2 puff inhalation Q4-6H PRN (Reason: shortness of breath or wheezing) Qty: 8.5 0RF benzonatate 200 mg capsule 200 mg PO BID-TID PRN (Reason: cough) Qty: 20 0RF esomeprazole magnesium 40 mg capsule,delayed release(DR/EC) 40 mg PO BID Follow Up/Referrals: Katerina Hankins, AICHA, LUNCH COUNTER MANAGER [Primary Care Provider] - Stand Alone Forms: Vascular Imaging Info Instructions
== END 2023-04-17 12:48 | disposition home or self-care (01) ==
LOC: ED 12:41
PROVIDERS: Emergency Provider Family Medicine; PCP Nurse Practitioner Family
DX: H10.9 Unspecified conjunctivitis (principal)
CPT/HCPCS: 99283; A9270